=== PATIENT | female | born 1930 | race Caucasian/White ===

== ENCOUNTER 2017-02-16 06:30 | Day surgery (SDC) | payer MEDICARE, OTHER ==
[2017-02-15 16:01] LABS: BASOPHILS 0.1 % (0-2); EOSINOPHILS 1.2 % (0-7); HEMATOCRIT 33.3 % (36.0-48.0); HEMOGLOBIN 10.4 g/dL (12-16); IMMATURE GRANULOCYTES 0.4 % (0-5); LYMPHOCYTES 5.8 % (15-50); MCH 32.9 pg (26.0-34.0); MCHC 31.2 g/dL (31.0-37.0); MCV 105.4 fL (80.0-100.0); MEAN PLATELET VOLUME 10.9 fL (7.4-10.4); MONOCYTES 8.3 % (2-11); NEUTROPHILS 84.2 % (40-80); PLATELET COUNT 144 10x3/uL (130-400); RBC 3.16 10x6/uL (4.00-5.40); RDW 15.3 % (11.5-14.5); WBC 7.5 10x3/uL (4.8-10.8)
[2017-02-15 16:10] LABS: APTT 30.9 SECONDS (22.8-39.4); INR 1.02 (0.85-1.17); PROTIME 13.3 SECONDS (11.6-15.0)
[2017-02-15 16:12] LABS: ANION GAP 12.4 mmol/L (8-16); CALCIUM 9.3 mg/dL (8.5-10.1); CARBON DIOXIDE 29.8 mmol/L (21.0-32.0); CREATININE - SERUM 4.4 mg/dL (0.6-1.3); POTASSIUM - SERUM 4.2 mmol/L (3.5-5.1)
[~2017-02-16 06:30] MED LIST: ACETAMINOPHEN325 MG PO; DOXYCYCLINE HY100 M2 PO; DULCOLAX10 MG/SUPP RC; FOLIC ACID1 MG PO; FUROSEMIDE20 MG; LEVOTHROID125 MCG; LOPRESSOR25 MG PO; NEPHRO-VITE RX1 TAB; NEPHRO-VITE RX1 TAB PO; NORCO 7.5-3251 EACH PO; PEPCID AC20 MG PO; PHOSLO667 MG PO; PLAVIX75 MG PO; PREVACID30 MG PO; RENVELA800 MG PO; SYNTHROID125 MCG PO; SYNTHROID50 MCG PO; SYNTHROID75 MCG PO; TOPROL XL25 MG PO; ULTRAM50 MG PO
[2017-02-16 08:35] VITALS: BMI 19.6
--- NOTE | 2017-02-16 14:49 | NUR ---
DR TIRADO HERE TO VISIT WITH PATIENT AND FAMILY
--- NOTE | 2017-02-16 15:42 | NUR ---
1500 IV DC WITH CATHER TIP INTACT
--- NOTE | 2017-02-27 13:00 | OP ---
PATIENT NAME: CARMINA GREWAL MEDICAL RECORD: [id number] :30 LOCATION:[facility] ADMISSION DATE: SURGEON: MEENA TIRADO MD DATE OF OPERATION: 02/16/2017 Ms. Grewal is an outpatient. Referred by Dr. Sanz of [place] and Dr. Payne of [place]. 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 ADDITIONAL DIAGNOSES: End-stage renal disease, on hemodialysis and dependence on hemodialysis. SURGEON: Meena Tirado MD ANESTHESIA: General with LMA per OFFICE NURSE. PREOPERATIVE NOTE: Ms. Grewal is a delightful 86-year-old white female patient from [place]. She is on chronic hemodialysis there via a left arm HeRO AV graft. She had been noted to have rising venous pressures and has developed an enlarging pseudoaneurysm in the upper portion of her arm, which when I saw her in the office last week appeared inflamed and I was concerned that it was infected. She is brought to the operating room at this time for a fistulogram and possible open revision. On physical examination preop, the inflammatory changes, the heat and redness overlying the pseudoaneurysm have completely resolved since last week and I am less expecting an abscess or infection of the graft at this point. DESCRIPTION OF PROCEDURE: Under general anesthesia, the patient was prepped and draped in a sterile manner. The graft was accessed with micropuncture technique in antegrade direction near the arterial anastomosis. Initially, a 6-Venezuelan introducer was placed and later an 8-Venezuelan introducer. A 0.035 Glidewire was inserted and advanced to the right atrium through the HeRO outflow device. Contrast injection with digital subtraction technique and proximal graft occlusion yielded an excellent retrograde study with filling of the juxta-anastomotic and anastomotic areas and the brachial artery above and below the anastomosis and there was no lesion or stenosis or other abnormality. There was some irregularity of the graft, but nothing significant. Repeated contrast injections followed to the right atrium demonstrated a large pseudoaneurysm at the site already known by physical examination and an area of stenosis or kinking perhaps at the PTFE connector junction. Beyond that there was free flow into the right atrium. I dilated the area of intragraft connector junction stenosis with a 6-mm angioplasty balloon and repeated contrast injections looked much better with essentially complete resolution. I then placed a stent, initially a 4 cm long x 7 mm wide Fluency PTFE covered stent to cover and repair the pseudoaneurysm. Repeated contrast injections revealed persistent filling and I covered the aneurysm a second time with a longer 60 mm x 7 mm diameter Fluency stent and repeated contrast injection revealed no filling of the aneurysm. The stents were fully expanded with an 8-mm angioplasty balloon. I used a 22-gauge needle and 10 cc syringe to aspirate percutaneously fluid from the pseudoaneurysmal cavity. This was normal-appearing red blood without any signs of abscess or infection. I did send this blood for culture and sensitivity to the lab. The hardware was removed. The puncture site closed OPERATIVE REPORT [id number] CARMINA GREWAL with a [id number] 4-0 Prolene sutures and a period of direct pressure. The puncture site and the site of aneurysmal aspiration were both dressed with Avitene Ultrafoam, Tegaderm, and Cavilon skin prep. The patient was then awakened and in stable condition taken to the recovery room. Blood loss during the operation was insignificant and unreplaced, about 5-10 cc. All sponges, instruments, and needles were accounted for. No specimen was sent for histopathology, although a specimen of blood aspirated from the pseudoaneurysm was sent for culture and sensitivity. PLAN: The patient will be allowed to go home today. She can resume dialysis in her usual schedule tomorrow in [place]. She is to continue on all of her same medications and her same diet. At this point, there is no need for her to have a followup visit with me in my office. We are asking that the [facility] dialysis nurses remove the skin sutures from the puncture sites at dialysis tomorrow. I am also asking the dialysis nurses to avoid sticking the upper one half of the AV graft. I believe there is ample length of graft available on the lower half of her arm so that we do not have to stick through the brand new stents for the first 2 weeks. After that, then I think it is fine to do so. I have marked on the patient's skin where the stents are, where to stick and where not to stick. TRANSINT:[id number] Voice Confirmation ID: [id number] DOCUMENT ID: [id number] CC: [facility] dialysis [place], MEENA MERCEDES MD at 1300 CC: WALI PAYNE MD and WALI SANZ MD [id number] DICTATION DATE: 02/16/17 1332 [facility] OFFICER: 02/16/17 1516 [facility] 02/16/17 [facility] [address] [place] [address]
== END 2017-02-16 15:00 | disposition home or self-care (01) ==
LOC: D.OPS 06:30
PROVIDERS: Surgery
DX: T82.590A Other mechanical complication of surgically created arteriovenous fistula, initial encounter (principal); T82.858A Stenosis of other vascular prosthetic devices, implants and grafts, initial encounter; I72.8 Aneurysm of other specified arteries; I13.2 Hypertensive heart and chronic kidney disease with heart failure and with stage 5 chronic kidney disease, or end stage renal disease; N18.6 End stage renal disease; I50.9 Heart failure, unspecified; Z99.2 Dependence on renal dialysis; Z01.812 Encounter for preprocedural laboratory examination

== ENCOUNTER 2017-06-12 15:33 | Day surgery (SDC) | payer MEDICARE, OTHER ==
--- NOTE | ~2017-06-12 | OP ---
PATIENT NAME: CARMINA GREWAL MEDICAL RECORD: [id number] :30 LOCATION:[facility] ADMISSION DATE: SURGEON: MEENA TIRADO MD DATE OF OPERATION: 06/12/2017 REFERRING PHYSICIAN: Dr. Romano in [place]. DIAGNOSIS: Thrombosis of left upper extremity HeRO AV graft. 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 OPERATION PERFORMED: Left upper extremity fistulogram with AngioJet mechanical thrombolysis and balloon angioplasty of mid body of graft 80% stenosis. SURGEON: Meena Tirado MD ANESTHESIA: Local 1% lidocaine without epinephrine plus IV sedation and monitoring per STREET SPRINKL[facility]. PREOPERATIVE NOTE: Ms. Grewal is an 87-year-old white female patient who has been on hemodialysis for a number of years. Due to apparent thrombophilia, she has had numerous dialysis access failures, but for some time now has been dialyzing with a left upper extremity HeRO AV graft, although she has recently had several episodes of graft thrombosis. Just 5 days ago, she was treated by Dr. Santamaria at [facility] with percutaneous fistulogram and mechanical thrombolysis and balloon angioplasty. She has been on Plavix and aspirin most recently. Apparently, that regimen is not working. She was I think transferred up here from the hospital in [place] either yesterday or today and she was transferred with a Trialysis dialysis catheter in the right femoral vein where it remains at this time. She is brought to the operating room to try to salvage her access. Under IV sedation and monitored per [facility]RE[facility]INK[facility], she was placed in supine position. The left arm prepped and draped in sterile manner. Local anesthetic 1% lidocaine was utilized and micropuncture needle was introduced near the arterial anastomosis directed proximally and this led up to placement of a 6-Yakut introducer. Over 0.035 angled Glidewire, I then performed an AngioJet thrombolysis from the right atrium to near the arterial anastomosis. The patient was systemically heparinized with 3000 units of heparin and the graft was then examined with dilute contrast, which revealed some persistent narrowing or thrombus within the body of the graft between the mid body stent and the arterial anastomosis. I dilated this then with an 8 mm x 60 mm angioplasty balloon. This was done with hand insufflation. There was a waste and this about 80% stenosis did resolve. Repeated contrast injection demonstrated free flow of contrast from near the arterial anastomosis all the way to the right atrium. Then using ultrasound guidance, I introduced another micropuncture needle and catheter into the arterial limb of the graft directed towards the arterial anastomosis and from there, I placed another 6-Yakut introducer and I used a 4-Yakut Mimi embolectomy catheter to pull the arterial anastomotic plug. This immediately restored pulsation and Doppler flow to the graft. I performed a retrograde arteriogram by occluding the graft outflow with the Mimi balloon. This demonstrated no residual thrombus in the arterial limb, a wide open arterial anastomosis, and no evidence of stenosis or embolus within the proximal or distal brachial artery. The patient's heparin was not reversed. The hardware was removed and two 4-0 Prolene sutures were utilized at the OPERATIVE REPORT [id number] CARMINA GREWAL puncture sites for hemostasis. These sites were subsequently dressed with Avitene, Ultrafoam, Tegaderm, and Cavilon skin prep. With a suitably functioning HeRO AV graft and the patient still heparinized, she was taken to the recovery room. Blood loss during the operation was less than 5 mL and was unreplaced. All sponges, instruments, and needles were accounted for. No drain was used and no surgical specimen was submitted for histopathology. I believe that Plavix and aspirin has failed and I am going to start Ms. Grewal on Eliquis 2.5 mg b.i.d. She will need to have dialysis here in [place] and that will need to be done either this afternoon or this evening or tomorrow morning. We need to demonstrate that her HeRO graft is patent and hopefully will be remaining patent for at least several days after she is transferred back to [place]. The Trialysis catheter in her right groin needs to be removed or if there is a problem with the access, it should be replaced with a tunneled dialysis catheter before she leaves the hospital. Also, the patient was found on her chest x-ray this morning to have a pulmonary nodule and a worsening pleural effusion and I do not know if this has been evaluated in [place]. I will ask pulmonology to see her and if she has not had a CT of the chest, consider getting a CT of the chest while she is here with us in [place]. Her Eliquis anticoagulation if that is continued will need to be managed and prescribed by Dr. Romano in [place]. She will not have a routine followup visit to see me in my office, but of course I am available if she has any problems whenever. TRANSINT:[id number] Voice Confirmation ID: [id number] DOCUMENT ID: [id number] MEENA TIRADO MD at 1459 CC: WALI PAYNE and JUSTA SANTAMARIA MD [id number] DICTATION DATE: 06/12/17 1503 DIRECTOR STUDENT UNION: 06/12/17 1547 [facility] 06/13/[address] [id number]
[2017-06-12 08:35] LABS: APTT 30.9 SECONDS (22.8-39.4); INR 1.13 (0.85-1.17); PROTIME 14.1 SECONDS (11.6-15.0)
[2017-06-12 08:36] LABS: ANION GAP 16.1 mmol/L (8-16); CALCIUM 8.8 mg/dL (8.5-10.1); CARBON DIOXIDE 24.4 mmol/L (21.0-32.0); CREATININE - SERUM 9.5 mg/dL (0.6-1.3); POTASSIUM - SERUM 4.5 mmol/L (3.5-5.1)
[2017-06-12 08:39] LABS: BASOPHILS 0.2 % (0-2); EOSINOPHILS 1.9 % (0-7); HEMATOCRIT 33.4 % (36.0-48.0); HEMOGLOBIN 10.5 g/dL (12-16); IMMATURE GRANULOCYTES 0.4 % (0-5); LYMPHOCYTES 5.5 % (15-50); MCH 31.8 pg (26.0-34.0); MCHC 31.4 g/dL (31.0-37.0); MCV 101.2 fL (80.0-100.0); MEAN PLATELET VOLUME 10.7 fL (7.4-10.4); MONOCYTES 8.8 % (2-11); NEUTROPHILS 83.2 % (40-80); PLATELET COUNT 132 10x3/uL (130-400); RDW 14.7 % (11.5-14.5); WBC 5.2 10x3/uL (4.8-10.8)
[2017-06-12 10:15] VITALS: BP 119/46; BMI 20.8
[~2017-06-12 15:33] MED LIST changes: +NEPHROCAPS SOFTG1 MG PO; +SYNTHROID100 MCG PO
[2017-06-13] VITALS: BP 125/56
[2017-06-13 02:06] VITALS: BMI 21.0
[2017-06-13 04:00] VITALS: BP 124/50
[2017-06-13 08:05] VITALS: BP 115/53
[2017-06-13 11:21] VITALS: BP 119/51
[2017-06-13] MEDS ORDERED: ELIQUIS2.5 MG PO (13:31)
[2017-06-13 16:02] VITALS: BP 113/46
== END 2017-06-13 17:54 | disposition home or self-care (01) ==
LOC: D.OPS 15:33 → D.M2 18:13 → D.OPS 06-13 17:54
PROVIDERS: Surgery
DX: T82.868A Thrombosis due to vascular prosthetic devices, implants and grafts, initial encounter (principal); N18.6 End stage renal disease; Z99.2 Dependence on renal dialysis; Z01.812 Encounter for preprocedural laboratory examination; I13.2 Hypertensive heart and chronic kidney disease with heart failure and with stage 5 chronic kidney disease, or end stage renal disease

== ENCOUNTER 2017-09-12 13:30 | Inpatient (IN) | payer MEDICARE, OTHER ==
[~2017-09-12] VITALS: Ht 162.6 cm; Wt 56.9 kg
--- NOTE | ~2017-09-12 | OP ---
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 OPERATION PERFORMED: Insertion of a left common femoral tunneled dialysis catheter inserting a 25 cm HemoSplit TDC. ANESTHESIA: MAC per [place] [facility] and local 1% lidocaine. SURGEON: Meena Tirado MD PREOPERATIVE NOTE: Ms. Grewal is a delightful 87-year-old white female patient from [place], her dray driver there is Dr. Sanz and Dr. Romano. She has been dialyzing for some time with a left upper extremity HeRO AV graft. It has thrombosed several times and required multiple interventions. She has been doing better on Eliquis, but did thrombosed her graft again last weekend. I saw her at [facility] on Sunday and was prepared to do a percutaneous thrombolysis procedure to salvage the access; however, there was a prominent erythematous lesion, which I thought represented an infected pseudoaneurysm for which reason she was not operated at [facility], but instead was admitted to the hospital here and taken to the operating room yesterday. At that time, I performed an open revision resecting the pseudoaneurysm and thrombectomy and then replaced the resected PTFE segment with a short length of 6 mm diameter Propaten PTFE . There did not appear that time to actually be an infection present. I also performed a fistulogram then and removed a good deal of organized thrombus from the graft. She was scheduled for dialysis, then today, but we found this morning that her graft had clotted again. She is brought back to the operating room today, Sunday late in the day about 6:30 with plans to just insert a tunneled dialysis catheter, so she can dialyze tonight and probably go home over the weekend to continue dialysis in [place] and then have her return for surgery probably Sunday of next week at which time I will plan to perform another thrombectomy and a much more extensive revisionary operation on her HeRO graft basically replacing the PTFE section. The patient was placed on the operating table and administered TIVA per [place]. I examined her right neck with ultrasound and found the right internal jugular vein to be sclerotic and very difficult to visualize and I elected to go to the groins. She was then prepped and draped in a sterile manner. I selected the left groin. I did note there was an inflamed seborrheic keratosis pedunculated lesion there, which I later excised about 0.5 cm diameter lesion, which was sent for permanent section histology. Adjacent to that using ultrasound guidance, I noted the common femoral vein to be suitable caliber and fully compressible, though it did exhibit some haziness or vagueness consistent with scarring, possibly from prior dialysis access if not from phlebitis. I accessed it under ultrasound guidance with micropuncture technique and this led to passage of guidewires and dilators and eventually insertion of a 25 cm long HemoSplit dialysis catheter. The tips of the catheter reached up into the distal inferior vena cava with the catheter really inserted to its hilt. This was all done under fluoroscopy. I think that the catheter length optimally should be longer, OPERATIVE REPORT [id number] CARMINA GREWAL but this catheter functioned well. I aspirated and blood returned easily from both lumens. The catheter was then flushed with saline and then heparin locked. The catheter was secured to the skin near the entry site with 2-0 Prolene and the groin incision closed with interrupted inverted 3-0 Vicryl and Dermabond glue. I excised the skin lesion and the small skin defect was closed with 2 interrupted simple 4-0 Prolene sutures that incision and the groin was dressed with Maxorb Ag, Tegaderm, and Cavilon skin prep. A standard CVL dressing was applied to the catheter at the exit site including a chlorhexidine Biopatch. The patient was awakened and returned to her room in stable condition. I believe that she can go on to dialysis this evening and quite possibly go home tomorrow with plans to bring her back next week for her next operation. TRANSINT:[id number] Voice Confirmation ID: [id number] DOCUMENT ID: [id number] MEENA TIRADO MD at 1544 CC: [id number] DICTATION DATE: 09/14/172025 DEMAND GENERATION MANAGER: 09/15/17 0904 DIS IN 09/15/17 [place] [id number] [facility] [address]
--- NOTE | ~2017-09-12 | OP ---
PATIENT NAME: CARMINA GREWAL MEDICAL RECORD: [id number] :30 LOCATION:D. D.2135 ADMISSION DATE:09/12/17 SURGEON: MEENA TIRADO MD DATE OF OPERATION: 09/13/2017 REFERRING PHYSICIAN: Dr. Sanz and Rosalina of [place]. PREOPERATIVE DIAGNOSES: End-stage renal disease and dependence on hemodialysis with history of thrombophilia, presently with thrombosed left arm HeRO AV graft with what appears to be an infected pseudoaneurysm. Postop, no evidence of infection was seen. Those specimens were sent for culture. Gram stain was negative for organisms, but showed a few WBCs. OPERATION PERFORMED: Open revision with thrombectomy of left arm AV graft with intraoperative fistulogram. SURGEON: Meena Tirado MD ANESTHESIA: General with LMA per FACSIMILE MACHINE OPERATOR. PREOPERATIVE NOTE: This 87-year-old white female on chronic hemodialysis. Unfortunately, has thrombophilia and has had numerous dialysis access failures. She is presently dialyzing with a left arm HeRO graft, which has thrombosed several times and she has required numerous interventions. The graft is thrombosed again and it appears that she may have an infected pseudoaneurysm. For that reason her procedure was not done as an outpatient at [facility] yesterday, but instead she was admitted to the hospital yesterday and brought to the operating room here today for procedure. DESCRIPTION OF PROCEDURE: Under general anesthesia with an LMA per FACSIMILE MACHINE OPERATOR, with the patient in supine position, the left arm was prepped and draped in a sterile manner. I made an elliptical incision over the mid portion of the body of the PTFE graft in the left arm and exposed the thrombosed graft and pseudoaneurysm. The pseudoaneurysm was very adherent to the overlying skin, but there did not appear to be any gross purulence or infection. There was a little bit of fluid present which was serosanguineous and which I did sample and send for culture. Gram stain of that fluid revealed very few WBCs and no organisms were seen. That mid-section of the graft was more widely exposed and then resected. I performed a thrombectomy with a Mimi embolectomy catheter from the venous outflow and was successful in removing a very organized thrombus. There are 2 overlapping stents in this segment of PTFE, but on the subsequent angiogram there was no residual stenosis in this area or anywhere in the outflow. The patient was systemically heparinized and the arterial limb was then cleared of thrombus with the embolectomy catheter and a contrast injection to perform a retrograde arteriogram revealed no evidence of stenosis within the arterial limb or juxta-anastomotic segment or the arterial anastomosis itself and there were no lesions seen in the proximal or brachial artery distal to the anastomosis. I used a short Propaten PTFE standard wall thickness graft and placed an interposition graft sutured at both ends with running 6-0 Prolene and sealed with BioGlue. When completed and the occluding clamps and loops were released, excellent flow was established in her AV graft and I was pleased at least with that initial result. The wound was irrigated with Ancef and gentamicin solution. The excised segments of graft were also sent for culture and sensitivity. The wound was closed with interrupted inverted 3-0 Vicryl and running intracuticular 4-0 Monocryl and Dermabond glue. It was dressed with OPERATIVE REPORT [id number] GREWAL,CARMINA R Maxorb Ag, Tegaderm, and Cavilon skin prep. At that point, the patient was awakened and taken to the recovery room. Her heparin anticoagulation was not reversed. I did manpreet on her arm the segment of graft, which is not to be cannulated for the next several weeks. Blood loss during the operation was about 50 cc. None was replaced. All sponges, instruments, and needles were accounted for. No drain was used and no surgical specimen was submitted for histopathology, but several specimens were sent for culture. PLAN: The patient should be able to have dialysis this evening or tomorrow, and then very possibly be able to go home tomorrow or the next day. She will need to be back on her Eliquis when she leaves though. TRANSINT:[id number] Voice Confirmation ID: [id number] DOCUMENT ID: [id number] MEENA TIRADO MD at 1544 CC: [id number] DICTATION DATE: 09/14/172036 TRACK SERVICE WORKER: 09/15/17916 DIS IN 09/15/17 [facility] [address] [place] [address]
[~2017-09-12 13:30] MED LIST changes: +ELIQUIS2.5 MG PO
[2017-09-12 16:03] VITALS: BP 138/59; BMI 20.6
[2017-09-12 17:04] LABS: BASOPHILS 0.2 % (0-2); EOSINOPHILS 1.8 % (0-7); HEMATOCRIT 29.5 % (36.0-48.0); HEMOGLOBIN 9.1 g/dL (12-16); IMMATURE GRANULOCYTES 0.3 % (0-5); LYMPHOCYTES 11.4 % (15-50); MCH 29.3 pg (26.0-34.0); MCHC 30.8 g/dL (31.0-37.0); MCV 94.9 fL (80.0-100.0); MEAN PLATELET VOLUME 10.6 fL (7.4-10.4); MONOCYTES 5.3 % (2-11); RBC 3.11 10x6/uL (4.00-5.40); RDW 15.2 % (11.5-14.5); WBC 6.1 10x3/uL (4.8-10.8)
[2017-09-12 17:06] LABS: PLATELET COUNT 189 10x3/uL (130-400)
[2017-09-12 17:27] LABS: ANION GAP 16.7 mmol/L (8-16); BILIRUBIN - TOTAL 0.27 mg/dL (0.2-1.3); CARBON DIOXIDE 26.7 mmol/L (21.0-32.0); CREATININE - SERUM 11.1 mg/dL (0.6-1.3); PHOSPHOROUS 5.1 mg/dL (2.5-4.9); POTASSIUM - SERUM 4.4 mmol/L (3.5-5.1); PROTEIN - SERUM 6.1 g/dL (6.4-8.2)
[2017-09-12 17:31] LABS: APTT 31.8 SECONDS (22.8-39.4); INR 1.11 (0.85-1.17); PROTIME 13.9 SECONDS (11.6-15.0)
[2017-09-13 01:03] VITALS: BP 148/73
[2017-09-13 06:10] LABS: BASOPHILS 0.2 % (0-2); EOSINOPHILS 2.5 % (0-7); HEMATOCRIT 27.5 % (36.0-48.0); HEMOGLOBIN 8.6 g/dL (12-16); IMMATURE GRANULOCYTES 0.2 % (0-5); LYMPHOCYTES 10.9 % (15-50); MCH 29.1 pg (26.0-34.0); MCHC 31.3 g/dL (31.0-37.0); MEAN PLATELET VOLUME 10.5 fL (7.4-10.4); MONOCYTES 9.9 % (2-11); NEUTROPHILS 76.3 % (40-80); PLATELET COUNT 191 10x3/uL (130-400); RBC 2.96 10x6/uL (4.00-5.40); RDW 15.3 % (11.5-14.5); WBC 4.8 10x3/uL (4.8-10.8)
[2017-09-13 06:12] LABS: MCV 92.9 fL (80.0-100.0)
[2017-09-13 06:15] LABS: ANION GAP 22.3 mmol/L (8-16); CALCIUM 7.8 mg/dL (8.5-10.1); CARBON DIOXIDE 20.2 mmol/L (21.0-32.0); CREATININE - SERUM 11.7 mg/dL (0.6-1.3); POTASSIUM - SERUM 4.5 mmol/L (3.5-5.1)
[2017-09-13 07:00] VITALS: BP 146/69
[2017-09-13 12:46] VITALS: BMI 19.1
[2017-09-13 13:03] VITALS: BP 149/63
[2017-09-13 16:25] VITALS: BP 131/56
[2017-09-13 17:16] VITALS: Ht 162.6 cm; Wt 56.9 kg
[2017-09-14] VITALS: BP 106/48
[2017-09-14 04:00] VITALS: BP 107/47
[2017-09-14 09:01] VITALS: BP 110/47
[2017-09-14 11:29] LABS: BASOPHILS 0.2 % (0-2); EOSINOPHILS 0 % (0-7); HEMATOCRIT 26.4 % (36.0-48.0); IMMATURE GRANULOCYTES 0.3 % (0-5); LYMPHOCYTES 7.1 % (15-50); MCH 29.3 pg (26.0-34.0); MCHC 30.3 g/dL (31.0-37.0); MEAN PLATELET VOLUME 10.4 fL (7.4-10.4); MONOCYTES 8.1 % (2-11); NEUTROPHILS 84.3 % (40-80); PLATELET COUNT 159 10x3/uL (130-400); RBC 2.73 10x6/uL (4.00-5.40); RDW 15.6 % (11.5-14.5)
[2017-09-14 11:32] LABS: MCV 96.7 fL (80.0-100.0); WBC 6.3 10x3/uL (4.8-10.8)
[2017-09-14 11:48] LABS: CALCIUM 7.9 mg/dL (8.5-10.1); CARBON DIOXIDE 24.8 mmol/L (21.0-32.0); POTASSIUM - SERUM 4.8 mmol/L (3.5-5.1)
[2017-09-14 11:51] LABS: CREATININE - SERUM 7.9 mg/dL (0.6-1.3)
[2017-09-14 12:17] VITALS: BP 109/47
[2017-09-14 15:17] VITALS: BP 109/52
[2017-09-14 20:00] VITALS: BP 139/87
[2017-09-15 04:00] VITALS: BP 121/53
[2017-09-15 05:25] LABS: BASOPHILS 0.2 % (0-2); EOSINOPHILS 1.6 % (0-7); HEMATOCRIT 24.6 % (36.0-48.0); HEMOGLOBIN 7.6 g/dL (12-16); IMMATURE GRANULOCYTES 0.2 % (0-5); LYMPHOCYTES 8.8 % (15-50); MCH 29.2 pg (26.0-34.0); MCHC 30.9 g/dL (31.0-37.0); MCV 94.6 fL (80.0-100.0); MEAN PLATELET VOLUME 10.2 fL (7.4-10.4); MONOCYTES 8.3 % (2-11); NEUTROPHILS 80.9 % (40-80); PLATELET COUNT 155 10x3/uL (130-400); RDW 15.6 % (11.5-14.5); WBC 4.3 10x3/uL (4.8-10.8)
[2017-09-15 05:50] LABS: ALBUMIN 2.9 g/dL (3.4-5.0); ANION GAP 15.6 mmol/L (8-16); BILIRUBIN - TOTAL 0.3 mg/dL (0.2-1.3); CALCIUM 7.8 mg/dL (8.5-10.1); CARBON DIOXIDE 25.8 mmol/L (21.0-32.0); CREATININE - SERUM 8.5 mg/dL (0.6-1.3); POTASSIUM - SERUM 4.4 mmol/L (3.5-5.1)
[2017-09-15 08:21] VITALS: BP 144/67
== END 2017-09-15 15:01 | disposition home or self-care (01) | DRG 286 ==
LOC: D.ER 13:30 → D.M2 15:33
PROVIDERS: Internal Medicine Nephrology; Surgery
PROC: B2141ZZ Fluoroscopy of Right Heart using Low Osmolar Contrast (ICD-10-PCS; 2017-09-13)
PROC: 5A1D70Z Performance of Urinary Filtration, Intermittent, Less than 6 Hours Per Day (ICD-10-PCS; 2017-09-13)
PROC: 02H633Z Insertion of Infusion Device into Right Atrium, Percutaneous Approach (ICD-10-PCS; principal; 2017-09-13 12:30)
PROC: 06H033Z Insertion of Infusion Device into Inferior Vena Cava, Percutaneous Approach (ICD-10-PCS; 2017-09-14)
PROC: 0HB9XZZ Excision of Perineum Skin, External Approach (ICD-10-PCS; 2017-09-14)
DX: T82.868A Thrombosis due to vascular prosthetic devices, implants and grafts, initial encounter (principal); N18.6 End stage renal disease; I13.2 Hypertensive heart and chronic kidney disease with heart failure and with stage 5 chronic kidney disease, or end stage renal disease; N25.81 Secondary hyperparathyroidism of renal origin; Y83.8 Other surgical procedures as the cause of abnormal reaction of the patient, or of later complication, without mention of misadventure at the time of the procedure; I50.9 Heart failure, unspecified; E03.9 Hypothyroidism, unspecified; D63.1 Anemia in chronic kidney disease; L82.0 Inflamed seborrheic keratosis

== ENCOUNTER 2017-09-21 06:33 | Day surgery (SDC) | payer MEDICARE, OTHER ==
[2017-09-21] VITALS (8 sets, daily range): BP systolic 134–152; BP diastolic 56–76; BMI 20.6
[~2017-09-21] VITALS: Ht 162.6 cm; Wt 55.5 kg
--- NOTE | ~2017-09-21 | OP ---
PATIENT NAME: CARMINA GREWAL MEDICAL RECORD: [id number] :30 LOCATION:[facility] ADMISSION DATE: SURGEON: MEENA TIRADO MD DATE OF OPERATION: 09/21/2017 REFERRING PHYSICIAN: Dr. Sanz and Dr. Romano of [facility]. 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 OPERATION PERFORMED: Revision with thrombectomy and angiogram, left upper extremity AV graft. SURGEON: Meena Tirado MD ANESTHESIA: General endotracheal per SHIRT CLEANER. PREOPERATIVE NOTE: This is an 87-year-old white female patient from [place], [place] who has been on dialysis for about 8 years I believe. For some time now, she has been dialyzing with a left upper extremity HeRO graft, which has of course had problems and she has required multiple interventions, most recently with recurrent thrombosis of her HeRO graft. I inserted a groin HemoSplit and scheduled her to be operated today to do a major replacement. I believe, there are luminal irregularities and defects in the body of her present PTFE graft, which along with her thrombophilia doomed this access to repeated failure. I am going to try to put in a new PTFE segment today. DESCRIPTION OF PROCEDURE: Under general anesthesia in supine position, the patient was prepped and draped in a sterile manner. I reopened the incision in the deltopectoral groove and exposed the HeRO graft PTFE junction. The outflow device was clamped and the junction taken apart. The graft was aspirated and a small amount of thrombus suctioned from that, it was then flushed with heparinized saline and the outflow device again clamped. The old connector and PTFE graft were mobilized as far as I could through that incision without extending it and I was concerned that the graft was not well incorporated or fixed in the tunnel as one might expect, but neither was there any obvious purulence or other signs of infection. This segment of the graft was resected and sent for culture and sensitivity. I chose a new 6 mm diameter Acuseal PTFE graft and using a new HeRO connector, attached it to the end of the outflow device in the deltopectoral groove. The graft and outflow device were then again aspirated and then flushed again with heparinized saline. I then made an incision over the arterial anastomosis and exposed the distal existing PTFE graft and dissected around that circumferentially and then divided the existing PTFE graft and made a tunnel from there, just above the antecubital space back up to the deltopectoral groove through which we pulled the new Acuseal graft. It was again flushed with heparinized saline. The stump of graft on the brachial artery was then cleared of clot with a Mimi embolectomy catheter and then flushed with heparinized saline. I then did an end to end PTFE to Acuseal OPERATIVE REPORT [id number] CARMINA GREWAL R PTFE anastomosis with running 6-0 Prolene and when completed, I treated the suture line with BioGlue and when clamps and loops were released, etc., excellent flow was immediately established within the new AV graft and the suture line was hemostatic. The wounds were irrigated with antibiotic solution and infiltrated with 0.25% Marcaine without epinephrine. I accessed the graft through a new portion of Acuseal PTFE with a micro stick and a 4-Emirati microcatheter, performed an angiogram, which revealed free flow of contrast through the venous outflow device into the right atrium and then another repeated studies and with a clamp occlusion proximal to that mini stick site revealed the body of the graft and the JA and AA to be wide open and there were no lesions seen within the brachial artery above or below the anastomosis, the clamp was released, and the patient's ooze of coagulopathy was treated with a single unit transfusion of probably fresh frozen plasma. The wounds were closed with interrupted inverted 3-0 Vicryl and running intracuticular 4-0 Monocryl and Dermabond glue. They were dressed with Maxorb Ag, Tegaderm, and Cavilon skin prep. Additionally, a light pressure dressing with Kerlix and Coban was applied to the arm. I have ordered the patient to be capped in a head up position with her left arm elevated on a couple of pillows and if there is any sign of bleeding, sandbags to be used on the shoulder area. Note, her last dose of Eliquis was 24 hours preop. Her prothrombin time this morning was approximately 15 seconds. Blood loss during the operation about 100 cc, was unreplaced. All sponges, instruments, and needles were accounted for. No drain was used and no surgical specimen was submitted for histopathology, but a specimen of old PTFE graft was sent to the lab for culture for aerobic and anaerobic organisms. PLAN: I think the patient will need to be kept in observation this afternoon and this evening, primarily because of my concern over her risk for bleeding. Hopefully, tomorrow she will be able to be discharged to home. Logistics of her dialysis may be complicated. Tomorrow, she may need to dialyze here in the hospital or perhaps she could dialyze as an outpatient on her way home or after she gets back home to [place]. For now, she is to continue all of her same medications with the exception of her anticoagulant, which we can probably resume in about 2 days. She will continue her same diet, medications, activities, and when possible dialysis schedule. I think she should be continued to be dialyzed with her catheter for about 2 more weeks if it last that long and then begin accessing her AV graft using Acuseal technique. Soon thereafter, assuming the new graft remains patent, the thigh HemoSplit should be removed. TRANSINT:[id number] Voice Confirmation ID: [id number] DOCUMENT ID: [id number] MEENA TIRADO MD at 0847 CC: [id number] DICTATION DATE: 09/21/17 1322 BOTTLE HOUSE QUALITY CONTROL TECHNICIAN: 09/21/17 1421 [facility] 09/22/17 [facility] [address] [id number]
[2017-09-21 07:13] LABS: ANION GAP 14.1 mmol/L (8-16); CALCIUM 8.5 mg/dL (8.5-10.1); CARBON DIOXIDE 26.3 mmol/L (21.0-32.0); CREATININE - SERUM 5.7 mg/dL (0.6-1.3); POTASSIUM - SERUM 3.4 mmol/L (3.5-5.1)
[2017-09-21 07:19] LABS: INR 1.26 (0.85-1.17); PROTIME 15.3 SECONDS (11.6-15.0)
[2017-09-21 07:20] LABS: APTT 32.7 SECONDS (22.8-39.4)
[2017-09-21 07:30] LABS: BASOPHILS 0.2 % (0-2); HEMATOCRIT 26.4 % (36.0-48.0); HEMOGLOBIN 8.2 g/dL (12-16); IMMATURE GRANULOCYTES 0.3 % (0-5); LYMPHOCYTES 4.8 % (15-50); MCH 29.3 pg (26.0-34.0); MCHC 31.1 g/dL (31.0-37.0); MCV 94.3 fL (80.0-100.0); MEAN PLATELET VOLUME 11.3 fL (7.4-10.4); MONOCYTES 7.9 % (2-11); NEUTROPHILS 85.8 % (40-80); PLATELET COUNT 135 10x3/uL (130-400); RDW 15.5 % (11.5-14.5); WBC 5.8 10x3/uL (4.8-10.8)
[2017-09-22] VITALS: BP 131/59
[2017-09-22 02:26] VITALS: Ht 162.6 cm; Wt 55.5 kg
[2017-09-22 04:00] VITALS: BP 125/51
[2017-09-22 08:04] VITALS: BP 129/48
== END 2017-09-22 13:10 | disposition home or self-care (01) ==
LOC: D.OPS 06:33 → D.M2 13:35 → D.OPS 09-22 13:10
PROVIDERS: Surgery
DX: T82.868A Thrombosis due to vascular prosthetic devices, implants and grafts, initial encounter (principal); N18.6 End stage renal disease; Z99.2 Dependence on renal dialysis; D68.59 Other primary thrombophilia; Z79.02 Long term (current) use of antithrombotics/antiplatelets; Z79.01 Long term (current) use of anticoagulants; Z01.812 Encounter for preprocedural laboratory examination

== ENCOUNTER 2017-11-16 07:05 | Inpatient (IN) | payer MEDICARE, OTHER ==
[~2017-11-16] VITALS: Ht 162.6 cm; Wt 54.5 kg
--- NOTE | ~2017-11-16 | OP ---
PATIENT NAME: CARMINA GREWAL MEDICAL RECORD: [id number] :30 LOCATION:D. D.2138 ADMISSION DATE:11/16/17 SURGEON: MEENA TIRADO MD DATE OF OPERATION: 11/22/2017 PREOPERATIVE DIAGNOSIS: Recurrent thrombosis of left upper extremity HeRO AV graft. POSTOPERATIVE DIAGNOSES: Recurrent thrombosis of left upper extremity HeRO AV graft. OPERATION PERFORMED: Percutaneous access times 2 with ultrasound guidance and AngioJet mechanical thrombolysis of thrombus in HeRO graft from right atrium to arterial anastomosis to the brachial artery. Balloon angioplasty of JA segment of the AV graft and stenting with a 7-mm diameter x 5-cm Viabahn PTFE covered stent graft in the JA segment. Also selective left brachial artery arteriogram. ANESTHESIA: General with LMA per PROMOTIONAL REPRESENTATIVE. REFERRING PHYSICIAN: Guillermo Sanz MD, in [place] ATTENDING PHYSICIAN: Jesika Ball MD SURGEON: Meena Tirado MD PREOPERATIVE NOTE: This is an 87-year-old white female from [place], who has been on hemodialysis for long time and she has had multiple dialysis access failures due to thrombophilia in large part. She has been dialyzing now for some time with a left upper extremity HeRO graft, which had recently thrombosed despite her being on Plavix and Eliquis. She was hospitalized and taken to the operating room earlier this week and had an endovascular thrombolysis and angioplasty procedure with initial alevism of flow; however, this failed and she has had to have dialysis with a femoral temporary Trialysis catheter. She is returned to the operating room now to try again to salvage her graft. Under general anesthesia with an LMA per PROMOTIONAL REPRESENTATIVE, in supine position, the patient was prepped and draped in sterile manner The HeRO PTFE graft in the left upper extremity was accessed times 2 with micropuncture technique and two opposing 6-Montenegrin introducers were placed. The proximal introducer was replaced later in the case with an 8-Montenegrin introducer. Over a 0.035 Glidewire, the 90-cm long AngioJet was used and lysed thrombus within the venous outflow device of the HeRO and proximal PTFE segment. Contrast injection demonstrated some residual thrombus in the PHLEBOTOMIST SUPERVISOR/INSTRUCTOR segment, which was cleared with a Mimi balloon catheter. The proximal port was then accessed and a 0.035 Glidewire passed distally. This was passed through the arterial anastomosis and up the brachial artery. A Glidewire was inserted and a selective brachial artery arteriogram was obtained, which revealed good flow in the brachial artery above and below the arterial anastomosis and good flow without evidence of emboli or other stenoses in radial and ulnar arteries in the forearm. I used the AngioJet device over the guidewire to lyse thrombus in the arterial anastomosis, JA segment, and body of the graft. Repeat contrast injection then demonstrated persistent luminal irregularity and narrowing in the JA segment. This was treated with angioplasty with an 8-mm diameter Conquest high-pressure angioplasty balloon, 80 mm in length. Repeated contrast injection revealed persistent abnormalities. Passage of a Mimi embolectomy catheter was done and this did not change the picture. OPERATIVE REPORT [id number] CARMINA GREWAL I used then a 5-Montenegrin TrerotMyNewPlace egg-beater device to try to scrape the fried of the graft and the JA segment. Repeat contrast injection revealed still the same area of abnormality. I do not know if this represents a dissection of the intimal or pseudointimal lining or persistent tenacious thrombus. At any rate, I think that this was the lesion which I held to be responsible for early failure after her last thrombectomy. I covered that area from near the arterial anastomotic orifice with a 5-cm long x 7-mm diameter Viabahn PTFE covered stent and this was balloon dilated with the 8-mm angioplasty balloon. After this, contrast injection was performed again with the [place] catheter placed in the proximal brachial artery. This revealed good filling and flow in the graft and satisfactory result with the stent. The patient had been given 3000 units of heparin directly into the shunt during the procedure. No other anticoagulation was utilized. The patient had not been discontinued on her Eliquis and Plavix preop however. The 8-Montenegrin port and the 6-Montenegrin port were removed and hemostasis was obtained with [id number]-qc-[id number] 4-0 Prolene sutures and direct pressure. These sites were dressed with Ultrafoam, Tegaderm, and Cavilon skin prep. With the patient in stable condition and not bleeding from her puncture sites, she was awakened and taken to the recovery room. Blood loss during the procedure was about 50 cc, none was replaced intraoperatively. All sponges, instruments, and needles were accounted for. No drain was used and no surgical specimen was submitted for histopathology. PLAN: The patient will need to remain in the hospital and have dialysis via her temporary catheter until she is no longer bleeding and the left upper extremity AV graft can be successfully accessed with 17-gauge needles and dialysis performed by that route then, which maybe 2-3 days from now. She may be able to be discharged from the hospital and have the Trialysis catheter removed before leaving. TRANSINT:[id number] Voice Confirmation ID: [id number] DOCUMENT ID: [id number] MEENA TIRADO MD at 1054 CC: JESIKA BALL MD [id number] DICTATION DATE: 11/22/17 1200 BUTTON SEWER: 11/22/17 1600 [facility] 11/24/17 [facility] [address] [place] [address]
--- NOTE | ~2017-11-16 | OP ---
PATIENT NAME: CARMINA GREWAL MEDICAL RECORD: [id number] :30 LOCATION:D. D.2138 ADMISSION DATE:11/16/17 SURGEON: MEENA TIRADO MD DATE OF OPERATION: 11/16/2017 PREOPERATIVE DIAGNOSES: End-stage renal disease and dependence on hemodialysis with recurrent thrombosis of left arm HeRO AV graft, thrombophilia and hyperkalemia. POSTOPERATIVE DIAGNOSES: End-stage renal disease and dependence on hemodialysis with recurrent thrombosis of left arm HeRO AV graft, thrombophilia and hyperkalemia. OPERATION PERFORMED: Ultrasound-guided access of the right common femoral vein and performance of a vena cavogram followed by insertion of a 24 cm Trialysis acute dialysis catheter. SURGEON: Meena Tirado MD ANESTHESIA: Local 1% lidocaine without epinephrine and MAC per CYTOGENETIC TECHNICIAN. PREOPERATIVE NOTE: This 87-year-old white female patient with end-stage renal disease has been on chronic hemodialysis for a number of years. She has been dialyzing successfully though with numerous interventions required with a left arm HeRO graft. She has been on Eliquis in the past. I believe she has been on other anticoagulants. Her HeRO graft has thrombosed. Her last dialysis was Sunday of this week, and this morning she presented to the hospital as scheduled and found to have a potassium of 6.5. After medical treatment, the potassium level remained at 6.5. Originally scheduled for fistulogram with AngioJet thrombolysis and indicated procedures to reopen her HeRO graft that has been canceled or postponed until Sunday of next week and today she is to have just an acute dialysis catheter placed. DESCRIPTION OF PROCEDURE: Under MAC, the right neck was examined with ultrasound. The right internal jugular vein appeared to be patent, though small and sclerotic at the level of the clavicle. I accessed it with a micropuncture needle and the wire would not advance, and I stopped trying to access via that site after a few more minutes of various manipulations. I did not perform a contrast study from that right neck. We proceeded down to the right groin, which had been prepped and draped as well. With ultrasound, I was able to image the right femoral vein, though it was fuzzy. Under local, I made an incision in the skin and the upper thigh and then inserted a micropuncture needle successfully into the right common femoral vein and then a guidewire and then microcatheter. A larger catheter was advanced under fluoroscopy and it appeared to advance into the inferior vena cava. Two dilators were passed and lastly a 24 cm long Trialysis dialysis catheter with straight extensions was inserted. Though, before that I did inject contrast from the femoral catheter and performed inferior venacavogram, which demonstrated small vessels, but no occlusions or true stenoses. After the Trialysis catheter was placed, I injected contrast again and found on this study no abnormality of the upper IVC. The catheter was accessed and aspirated, free return of blood confirmed. It was then flushed with saline and heparin lock solution. The lines were clamped and capped, p.r.n. adapter was placed on the central line. The catheter was sutured in place with a 2-0 Prolene and the standard central venous line dressing was applied. OPERATIVE REPORT [id number] CARMINA GREWAL There was no blood loss during the procedure. All sponges, instruments and needles were accounted for. No drain was used. I plan to take Ms. Grewal to the operating room, hopefully Sunday morning, and at that time I hope to be able to do a percutaneous fistulogram, AngioJet, thrombectomy and indicated procedures and successfully restore patency again in her HeRO. We have not discontinued her Eliquis for that reason. TRANSINT:[id number] Voice Confirmation ID: [id number] DOCUMENT ID: [id number] MEENA TIRADO MD at 1451 CC: [id number] DICTATION DATE: 11/16/17 1431 PANEL RAISER OPERATOR: 11/16/17 1454 [facility] [address] [id number]
--- NOTE | ~2017-11-16 | OP ---
PATIENT NAME: CARMINA GREWAL MEDICAL RECORD: [id number] :30 LOCATION:D. D.2138 ADMISSION DATE:11/16/17 SURGEON: MEENA TIRADO MD DATE OF OPERATION: 11/19/2017 REFERRING PHYSICIAN: Dr. Umu Manjarrez ATTENDING HAND RIGGER: This week is Dr. Payne. SURGEON: Meena Tirado MD ANESTHESIA: General per LMA by MANAGER WATER. 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 OPERATION PERFORMED: Ultrasound-guided access times 2 and AngioJet mechanical thrombolysis and balloon angioplasty of mild stenosis of the body of the graft and balloon angioplasty of a titer approximately 80% juxta arterial anastomotic stenosis and selective brachial arteriogram. PREOPERATIVE NOTE: Ms. Grewal is a delightful 87-year-old white female patient who has been on dialysis for years. She has thrombosed many dialysis accesses and is dialyzing now with a left upper extremity HeRO, which she has thrombosed several times, but we have been able to salvage it several times. She is on chronic Eliquis and Plavix now because of her thrombophilia. Nevertheless, she had a thrombosis of her graft and was brought up here to the hospital for thrombectomy on Sunday of last week, but was found to have a critical hyperkalemia and instead I placed a dialysis catheter in her groin and then she has had dialysis and now with a normal potassium is brought back to the operating room to try to once again reopen her HeRO graft. Under general anesthesia administered by MANAGER WATER with LMA in supine position, the patient's left arm was prepped and draped in a sterile manner. I accessed the AV graft with 2 micropunctures with ultrasound guidance and I placed two 6-Italian introducers. Over a 0.035 angled Glidewire, I used an AngioJet device to lyse and remove thrombus from the intrathoracic outflow stent portion of the HeRO and from the body of the graft. The patient was given 3000 units of heparin systemically. I then used an 8 mm x 4 cm angioplasty balloon to help macerate residual thrombus and identified a mild stricture of the body of the graft, which was less than 60% diameter reducing, but which yielded nicely to the angioplasty. The graft was then flushed with saline and heparin solution and then a DSA contrast study was performed, which revealed wide open graft without congregation of arterial inflow. Through the more proximal port, which was directed distally, I again inserted the 0.035 Glidewire and over that the AngioJet catheter and I lysed thrombus within the JA and also within the body of the graft. I then used a Mimi embolectomy catheter to help pull the thrombus from the arterial anastomosis and I noted that there was stenosis of the JA segment. I used the angioplasty balloon then to dilate the JA segment and there was I would say approximately a 75% to 80% diameter reducing stenosis and I OPERATIVE REPORT [id number] CARMINA GREWAL achieved full effacement of the angioplasty balloon and there was a 5% to 10% residual stenosis on completion angiography. I did pass a Glidewire and glide catheter through the body of the graft on the JA and AA into the brachial artery and performed a selective brachial artery arteriogram. This was to identify any areas of stenosis within the proximal artery, which might be causing reduced arterial inflow and also to assure that there were no emboli. There were no emboli and the arteriogram was normal. Good flow was restored within the graft. The procedure was completed. The hardware was removed and pzhgda-[id number]-[id number] 4-0 Prolene sutures placed in the skin at the sites of the 6-Italian introducers. Sterile dressings were applied and the patient then was awakened and in stable condition, with a good pulse and thrill palpable over her graft, was taken to the recovery room. Blood loss was about 10 cc and was unreplaced of course. All sponges, instruments and needles were accounted for. Of course, no drain was used and blood loss about 10 cc was unreplaced. PLAN: The patient will have dialysis here tomorrow and if her dialysis access functions well, her dialysis catheter can be removed and she can be discharged to return home. She will, for now, continue on Eliquis and Plavix, but she may need to be changed to different medications. In case the Plavix in her case is not effective, I think it would be good to give her a trial on Brilinta. Also, she might be changed from Eliquis to Xarelto just because there is now available antidote for that medication, which might be needed in case of bleeding complications. TRANSINT:[id number] Voice Confirmation ID: [id number] DOCUMENT ID: [id number] MEENA TIRADO MD at 2205 CC: WALI PAYNE [id number] DICTATION DATE: 11/19/172135 WIND TUNNEL ENGINEER: 11/20/[address] [facility] [place] [id number] [place] [id number]
[2017-11-16 07:27] LABS: BASOPHILS 0.1 % (0-2); EOSINOPHILS 1.3 % (0-7); HEMATOCRIT 30.9 % (36.0-48.0); HEMOGLOBIN 9.6 g/dL (12-16); IMMATURE GRANULOCYTES 0.8 % (0-5); MCH 29.6 pg (26.0-34.0); MCHC 31.1 g/dL (31.0-37.0); MCV 95.4 fL (80.0-100.0); MEAN PLATELET VOLUME 9.9 fL (7.4-10.4); NEUTROPHILS 86.8 % (40-80); PLATELET COUNT 125 10x3/uL (130-400); RBC 3.24 10x6/uL (4.00-5.40); RDW 17.4 % (11.5-14.5); WBC 8.7 10x3/uL (4.8-10.8)
[2017-11-16 07:40] LABS: ANION GAP 16.4 mmol/L (8-16); CALCIUM 8.3 mg/dL (8.5-10.1); CARBON DIOXIDE 27.1 mmol/L (21.0-32.0); CREATININE - SERUM 7.6 mg/dL (0.6-1.3)
[2017-11-16 07:42] LABS: POTASSIUM - SERUM 6.5 mmol/L (3.5-5.1)
[2017-11-16 07:43] LABS: INR 1.2 (0.85-1.17); PROTIME 14.8 SECONDS (11.6-15.0)
[2017-11-16 09:41] VITALS: BP 145/69; BMI 20.6
[2017-11-16 11:07] LABS: ANION GAP 13.1 mmol/L (8-16); CALCIUM 8.4 mg/dL (8.5-10.1); CARBON DIOXIDE 28.4 mmol/L (21.0-32.0); CREATININE - SERUM 7.6 mg/dL (0.6-1.3)
[2017-11-16 11:12] LABS: POTASSIUM - SERUM 6.5 mmol/L (3.5-5.1)
[2017-11-16 15:04] VITALS: BP 141/63
[2017-11-16 15:13] VITALS: BP 141/63; BMI 20.6
[2017-11-16 20:02] VITALS: BP 115/52
[2017-11-17 00:24] VITALS: BP 130/50
[2017-11-17 06:13] VITALS: BP 143/69
[2017-11-17 08:09] VITALS: BP 128/64
[2017-11-17 08:38] VITALS: Ht 162.6 cm; Wt 54.5 kg
[2017-11-17 09:43] LABS: BASOPHILS 0.2 % (0-2); EOSINOPHILS 1.1 % (0-7); HEMATOCRIT 29.9 % (36.0-48.0); HEMOGLOBIN 9.3 g/dL (12-16); IMMATURE GRANULOCYTES 0.5 % (0-5); LYMPHOCYTES 7.8 % (15-50); MCH 29.5 pg (26.0-34.0); MCHC 31.1 g/dL (31.0-37.0); MCV 94.9 fL (80.0-100.0); MEAN PLATELET VOLUME 11.1 fL (7.4-10.4); MONOCYTES 3.7 % (2-11); NEUTROPHILS 86.7 % (40-80); PLATELET COUNT 127 10x3/uL (130-400); RBC 3.15 10x6/uL (4.00-5.40); RDW 17.6 % (11.5-14.5); WBC 6.3 10x3/uL (4.8-10.8)
[2017-11-17 09:57] LABS: ANION GAP 13.9 mmol/L (8-16); CALCIUM 8.2 mg/dL (8.5-10.1); CARBON DIOXIDE 29.3 mmol/L (21.0-32.0)
[2017-11-17 10:00] LABS: POTASSIUM - SERUM 5.2 mmol/L (3.5-5.1)
[2017-11-17 12:05] VITALS: BP 132/61
[2017-11-17 15:01] VITALS: BP 116/58
[2017-11-17 20:30] VITALS: BP 120/50
[2017-11-18 04:30] VITALS: BP 124/58
[2017-11-18 08:47] LABS: ANION GAP 14.4 mmol/L (8-16); CALCIUM 8.1 mg/dL (8.5-10.1); CARBON DIOXIDE 28.5 mmol/L (21.0-32.0); POTASSIUM - SERUM 4.9 mmol/L (3.5-5.1)
[2017-11-18 08:49] LABS: CREATININE - SERUM 6.7 mg/dL (0.6-1.3)
[2017-11-18 13:25] VITALS: BP 126/54
[2017-11-18 16:11] VITALS: BP 129/55
[2017-11-18 21:54] VITALS: BP 140/58
[2017-11-19 02:13] VITALS: BP 148/66
[2017-11-19 05:26] VITALS: BP 136/60
[2017-11-19 06:23] LABS: BASOPHILS 0.2 % (0-2); EOSINOPHILS 2.8 % (0-7); HEMATOCRIT 26.4 % (36.0-48.0); HEMOGLOBIN 8.4 g/dL (12-16); IMMATURE GRANULOCYTES 0.5 % (0-5); LYMPHOCYTES 7.7 % (15-50); MCH 29.6 pg (26.0-34.0); MCHC 31.8 g/dL (31.0-37.0); MEAN PLATELET VOLUME 11.9 fL (7.4-10.4); MONOCYTES 12.6 % (2-11); NEUTROPHILS 76.2 % (40-80); PLATELET COUNT 128 10x3/uL (130-400); RBC 2.84 10x6/uL (4.00-5.40)
[2017-11-19 06:32] LABS: ANION GAP 15.2 mmol/L (8-16); CALCIUM 7.9 mg/dL (8.5-10.1); CARBON DIOXIDE 25.8 mmol/L (21.0-32.0); CREATININE - SERUM 7.9 mg/dL (0.6-1.3); WBC 4.3 10x3/uL (4.8-10.8)
[2017-11-19 10:10] VITALS: BP 123/59
[2017-11-20 05:17] VITALS: BP 141/59
[2017-11-20 06:07] LABS: BASOPHILS 0.2 % (0-2); EOSINOPHILS 2.5 % (0-7); HEMATOCRIT 27.1 % (36.0-48.0); HEMOGLOBIN 8.6 g/dL (12-16); IMMATURE GRANULOCYTES 0.7 % (0-5); LYMPHOCYTES 7.1 % (15-50); MCH 29.6 pg (26.0-34.0); MCHC 31.7 g/dL (31.0-37.0); MCV 93.1 fL (80.0-100.0); MEAN PLATELET VOLUME 10.5 fL (7.4-10.4); MONOCYTES 11.1 % (2-11); NEUTROPHILS 78.4 % (40-80); PLATELET COUNT 119 10x3/uL (130-400); RBC 2.91 10x6/uL (4.00-5.40); RDW 16.9 % (11.5-14.5); WBC 4.1 10x3/uL (4.8-10.8)
[2017-11-20 06:10] LABS: ANION GAP 16.7 mmol/L (8-16); CALCIUM 7.9 mg/dL (8.5-10.1); CARBON DIOXIDE 23.9 mmol/L (21.0-32.0); POTASSIUM - SERUM 5.6 mmol/L (3.5-5.1)
[2017-11-20 08:17] VITALS: BP 146/63
[2017-11-20 16:45] VITALS: BP 118/58
[2017-11-20 20:00] VITALS: BP 122/49
[2017-11-21] VITALS: BP 138/70
[2017-11-21 04:00] VITALS: BP 126/56
[2017-11-21 05:52] LABS: BASOPHILS 0 % (0-2); HEMATOCRIT 24.5 % (36.0-48.0); HEMOGLOBIN 7.8 g/dL (12-16); IMMATURE GRANULOCYTES 0.5 % (0-5); MCH 29.4 pg (26.0-34.0); MCHC 31.8 g/dL (31.0-37.0); MCV 92.5 fL (80.0-100.0); MEAN PLATELET VOLUME 10.3 fL (7.4-10.4); NEUTROPHILS 77.5 % (40-80); PLATELET COUNT 117 10x3/uL (130-400); RBC 2.65 10x6/uL (4.00-5.40); RDW 16.7 % (11.5-14.5); WBC 4.1 10x3/uL (4.8-10.8)
[2017-11-21 06:34] LABS: ANION GAP 16.4 mmol/L (8-16); CALCIUM 7.8 mg/dL (8.5-10.1); CARBON DIOXIDE 24.4 mmol/L (21.0-32.0); POTASSIUM - SERUM 4.8 mmol/L (3.5-5.1)
[2017-11-21 09:16] VITALS: BP 127/63
[2017-11-21 12:22] VITALS: BP 108/80
[2017-11-21 16:30] VITALS: BP 117/53
[2017-11-21 20:00] VITALS: BP 125/65
[2017-11-22 06:11] VITALS: BP 127/55
[2017-11-22 06:31] LABS: BASOPHILS 0.3 % (0-2); EOSINOPHILS 2.8 % (0-7); HEMATOCRIT 25.2 % (36.0-48.0); HEMOGLOBIN 7.8 g/dL (12-16); IMMATURE GRANULOCYTES 0.5 % (0-5); LYMPHOCYTES 16.1 % (15-50); MCH 29.4 pg (26.0-34.0); MEAN PLATELET VOLUME 11.3 fL (7.4-10.4); MONOCYTES 7.5 % (2-11); NEUTROPHILS 72.8 % (40-80); PLATELET COUNT 117 10x3/uL (130-400); RBC 2.65 10x6/uL (4.00-5.40); RDW 16.9 % (11.5-14.5); WBC 3.9 10x3/uL (4.8-10.8)
[2017-11-22 06:40] LABS: ANION GAP 17.6 mmol/L (8-16); CARBON DIOXIDE 22.2 mmol/L (21.0-32.0); CREATININE - SERUM 8.2 mg/dL (0.6-1.3); POTASSIUM - SERUM 4.8 mmol/L (3.5-5.1)
[2017-11-22 06:43] LABS: MCV 95.1 fL (80.0-100.0)
[2017-11-22 08:52] VITALS: BP 131/59
[2017-11-22 12:53] VITALS: BP 151/67
[2017-11-22 21:27] VITALS: BP 115/44
[2017-11-23 02:11] VITALS: BP 114/46
[2017-11-23 04:00] VITALS: BP 108/52
[2017-11-23 06:20] LABS: CALCIUM 8.1 mg/dL (8.5-10.1); POTASSIUM - SERUM 4.6 mmol/L (3.5-5.1)
[2017-11-23 06:24] LABS: CARBON DIOXIDE 30.6 mmol/L (21.0-32.0); CREATININE - SERUM 5.9 mg/dL (0.6-1.3)
[2017-11-23 06:49] LABS: BASOPHILS 0.1 % (0-2); EOSINOPHILS 0.1 % (0-7); HEMATOCRIT 20.8 % (36.0-48.0); IMMATURE GRANULOCYTES 0.6 % (0-5); LYMPHOCYTES 2.9 % (15-50); MCH 29.6 pg (26.0-34.0); MCHC 31.7 g/dL (31.0-37.0); MCV 93.3 fL (80.0-100.0); MEAN PLATELET VOLUME 11.6 fL (7.4-10.4); NEUTROPHILS 89.3 % (40-80); RBC 2.23 10x6/uL (4.00-5.40); RDW 16.7 % (11.5-14.5)
[2017-11-23 06:53] LABS: PLATELET COUNT 146 10x3/uL (130-400); WBC 7.2 10x3/uL (4.8-10.8)
[2017-11-23 06:54] LABS: HEMOGLOBIN 6.6 g/dL (12-16)
[2017-11-23 08:39] VITALS: BP 126/87
[2017-11-23 11:45] VITALS: BP 145/79
[2017-11-23 15:55] VITALS: BP 111/45
[2017-11-23 21:20] VITALS: BP 115/57
[2017-11-24 02:35] VITALS: BP 109/45
[2017-11-24 06:37] VITALS: BP 117/52
[2017-11-24 06:56] LABS: BASOPHILS 0.2 % (0-2); EOSINOPHILS 0.3 % (0-7); HEMATOCRIT 20.3 % (36.0-48.0); IMMATURE GRANULOCYTES 0.6 % (0-5); LYMPHOCYTES 3.2 % (15-50); MCH 30.4 pg (26.0-34.0); MCHC 32.5 g/dL (31.0-37.0); MCV 93.5 fL (80.0-100.0); MEAN PLATELET VOLUME 10.6 fL (7.4-10.4); NEUTROPHILS 87.7 % (40-80); PLATELET COUNT 174 10x3/uL (130-400); RBC 2.17 10x6/uL (4.00-5.40); RDW 16.7 % (11.5-14.5)
[2017-11-24 07:12] LABS: ANION GAP 16.5 mmol/L (8-16); CALCIUM 8.2 mg/dL (8.5-10.1); CARBON DIOXIDE 25.8 mmol/L (21.0-32.0)
[2017-11-24 07:19] LABS: CREATININE - SERUM 7.8 mg/dL (0.6-1.3); POTASSIUM - SERUM 5.3 mmol/L (3.5-5.1)
[2017-11-24 07:22] LABS: WBC 11.7 10x3/uL (4.8-10.8)
[2017-11-24 07:29] LABS: HEMOGLOBIN 6.6 g/dL (12-16)
[2017-11-24 08:14] VITALS: BP 118/53
[2017-11-24 16:04] VITALS: BP 110/53
== END 2017-11-24 16:51 | disposition home or self-care (01) | DRG 252 ==
LOC: D.OPS 07:05 → D.M2 14:46 → D.OPS 14:47 → D.M2 11-24 16:51
PROVIDERS: Internal Medicine Nephrology; Surgery
PROC: B549ZZA Ultrasonography of Inferior Vena Cava, Guidance (ICD-10-PCS; 2017-11-16)
PROC: 06H033Z Insertion of Infusion Device into Inferior Vena Cava, Percutaneous Approach (ICD-10-PCS; principal; 2017-11-16 12:00)
PROC: B31N1ZZ Fluoroscopy of Other Upper Arteries using Low Osmolar Contrast (ICD-10-PCS; 2017-11-19)
PROC: 03C83ZZ Extirpation of Matter from Left Brachial Artery, Percutaneous Approach (ICD-10-PCS; 2017-11-19 14:30)
PROC: 03783ZZ Dilation of Left Brachial Artery, Percutaneous Approach (ICD-10-PCS; 2017-11-19 14:30)
PROC: 03763DZ Dilation of Left Axillary Artery with Intraluminal Device, Percutaneous Approach (ICD-10-PCS; 2017-11-22)
PROC: 03C63ZZ Extirpation of Matter from Left Axillary Artery, Percutaneous Approach (ICD-10-PCS; 2017-11-22)
PROC: B31J1ZZ Fluoroscopy of Left Upper Extremity Arteries using Low Osmolar Contrast (ICD-10-PCS; 2017-11-22)
DX: T82.868A Thrombosis due to vascular prosthetic devices, implants and grafts, initial encounter (principal); N18.6 End stage renal disease; I12.0 Hypertensive chronic kidney disease with stage 5 chronic kidney disease or end stage renal disease; D68.59 Other primary thrombophilia; Y83.8 Other surgical procedures as the cause of abnormal reaction of the patient, or of later complication, without mention of misadventure at the time of the procedure; Z99.2 Dependence on renal dialysis; E87.5 Hyperkalemia

== ENCOUNTER 2017-12-17 11:29 | Inpatient (IN) | payer MEDICARE, OTHER ==
[~2017-12-17] VITALS: Ht 162.6 cm; Wt 55.6 kg
--- NOTE | ~2017-12-17 | OP ---
PATIENT NAME: CARMINA GREWAL MEDICAL RECORD: [id number] :30 LOCATION:D. 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 OPERATION PERFORMED: Percutaneous mechanical thrombolysis with AngioJet and balloon angioplasty of arterial anastomotic stenosis due to thrombus and selective left brachial artery arteriogram. SURGEON: Meena Tirado MD ANESTHESIA: General with LMA per ROD MILL TENDER. PREOPERATIVE NOTE: Ms. Grewal is an 87-year-old white female patient with end-stage renal disease, who has been on dialysis for years now. She has been on dialysis for sometime with a left upper extremity HeRO AV graft which, despite aggressive anticoagulation treatment, continues to thrombose at fairly close intervals. She has thrombosed again, was admitted to the hospital over this past weekend; and now, Sunday, she is brought to the operating room for declot procedure. Under anesthesia, in supine position, the patient's left arm was prepped and draped in sterile manner. I accessed it with micropuncture technique and placed 6-Frisian introducers, one directed antegrade and the other retro. Over a Glidewire, I used an AngioJet to lyse thrombus within the body of the graft and through the outflow device to the right atrium. The lumen was then aspirated and 20 cc of blood withdrew, was discarded; after which, the HeRO was flushed with heparinized saline and then contrast injection demonstrated no irregularities or residual apparent thrombus within the body of the graft or in the outflow device. I then used the AngioJet over a Glidewire to lyse thrombus in the juxta-anastomotic segment. I crossed the anastomosis with Glidewire and then with Glidecatheter and placed the Glidecatheter in the brachial artery near the axilla. Contrast injection with digital subtraction revealed no evidence of emboli or thrombosis of that artery. The catheter was repositioned into the distal brachial artery and injections repeated until the radial and ulnar arteries were visualized all the way into the hand. There was no evidence of any embolization or thrombosis. The palmar arches are not intact, but there is good arterial supply to all of the digits. I then used a Mimi embolectomy balloon catheter to remove thrombus from the arterial anastomosis and then repeat contrast injection revealed some irregularity or stenosis at the AA, which was treated with an angioplasty balloon 8-mm diameter x 40. Repeated contrast injections following that demonstrated excellent flow in the fistula and no residual thrombus or stenosis. The hardware was removed with hemostasis at the puncture sites obtained with [id number] 4-0 Prolene sutures and direct pressure. The sites were dressed with Ultrafoam and Tegaderm with Cavilon skin prep. She was awakened and taken to the recovery room. OPERATIVE REPORT [id number] CARMINA GREWAL Blood loss was about 25 cc, none replaced. Sponges, instruments, and needles were accounted for. No drain was used. No surgical specimen submitted. The patient will be sent on to dialysis, and as soon as she has had dialysis, if otherwise okay with nephrology, she can be discharged. No routine planned followup at this time and she should resume her usual anticoagulant regime this evening, supper time or later. A 5000 units of heparin was given intraoperatively today and this was not reversed, but no other anticoagulation has been administered today. TRANSINT:[id number] Voice Confirmation ID: [id number] DOCUMENT ID: [id number] MEENA TIRADO MD at 1119 CC: WALI PAYNE [id number] DICTATION DATE: 12/18/17 1341 DISASTER OR DAMAGE CONTROL SPECIALIST: 12/18/17 [address] [facility] [address] [place] [address]
--- NOTE | ~2017-12-17 | OP ---
PATIENT NAME: CARMINA GREWAL MEDICAL RECORD: [id number] :30 LOCATION:D. D.2119 ADMISSION DATE:12/17/17 SURGEON: MEENA TIRADO MD DATE OF OPERATION: 12/20/2017 REFERRED BY: Dr. Sanz in [place]. 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 OPERATION PERFORMED: Percutaneous angiogram and AngioJet mechanical thrombolysis and selective left brachial artery arteriogram. SURGEON: Meena Tirado MD ANESTHESIA: Local 2% lidocaine without epinephrine and monitoring and sedation per INFORMATION DEVELOPER. PREOPERATIVE NOTE: Mr. Grewal had dialysis successfully after her surgery on Sunday and then thrombosed her graft after that. This was noted on Sunday, yesterday. There may have been a lack of continuity with her anticoagulant medication, her Eliquis. Also, the patient tells me today that for the last few days at home, she actually did not have any Eliquis as she had given the medication away to a relative. It is possible and hopefully this recent problem with severe thrombophilia can be at least partly explained by her not taking her medication history which had not gotten before today. At any rate, the graft is clotted again. She has no other means of dialysis and she is brought back to the operating room to do another declot under local. Under monitoring and minimal sedation per INFORMATION DEVELOPER, the patient was placed on the table in supine position and prepped and draped in sterile manner. The graft in the left arm was accessed with micropuncture technique and local anesthesia near the arterial anastomosis and a 6-Lao introducer placed and an AngioJet catheter used to lyse thrombus within the body of the graft and the venous outflow device over a 0.035 Glidewire. After that, the access port was aspirated and 25 cc of blood was returned and discarded. I then flushed and then injected contrast and performed digital subtraction angiography, which demonstrated a good clearance of thrombus from the body of the graft and the outflow tract. I then inserted a second 6-Lao introducer near the shoulder, directed laterally and passed a Glidewire and a glide catheter through the distal graft on the arterial anastomosis into the proximal brachial artery. A selective brachial artery arteriogram was then performed, which revealed no stenoses or occlusions or clots or evidence of emboli. Films were taken into the elbow and there really were no embolic findings or changes. I then lysed residual thrombus in the arterial inflow with the AngioJet and used a 4-Lao Mimi embolectomy catheter to remove any remaining thrombus from the arterial anastomosis. Then with proximal occlusion, contrast was injected via the distal port and we saw that the arterial anastomosis and JA segment were wide open. At OPERATIVE REPORT [id number] CARMINA GREWAL R that point, the occluding balloon was deflated and contrast flowed quickly through the graft. There was no evidence or visualization of any residual thrombus or stenosis. The patient had been given 5000 units of heparin at the beginning of the procedure and this was not reversed. The two 6-Lao ports were removed and hemostasis was obtained with [id number] 4-0 Prolene sutures and a period of direct digital pressure. Dressings of foam and Tegaderm were applied with Cavilon skin prep. The patient was in stable condition and was taken to the recovery room. I did not reverse the heparin. There were about 25 cc of blood loss during the procedure, none was replaced. All sponges, instruments and needles were accounted for. No drain was used and no surgical specimen submitted for histopathology. I did not implant a dialysis catheter this time, hoping to keep her graft open with aggressive anticoagulation. PLAN: The patient will go back to the floor this evening. I am ordering 5 mg twice a day dose of Eliquis and starting her on Brilinta, using that rather than Plavix, but starting at a half dose at 90 mg p.o. once a day, but starting in the recovery room. She should have dialysis tomorrow through her HeRO graft. I am unsure about when she should be allowed to go home and the exact anticoagulant regime I am uncertain about and certainly we need hematology's recommendations. TRANSINT:[id number] Voice Confirmation ID: [id number] DOCUMENT ID: [id number] MEENA TIRADO MD at 1119 CC: WALI SANZ MD [id number] DICTATION DATE: 12/20/171758 RESIDENTIAL DRIVER: 12/20/[address] [facility] [address] [place] [place] [id number]
--- NOTE | ~2017-12-17 | OP ---
PATIENT NAME: CARMINA GREWAL MEDICAL RECORD: [id number] :30 LOCATION:D.M2 D.2119 ADMISSION DATE:12/17/17 SURGEON: CRYSTAL BLANCO MD DATE OF OPERATION: 12/28/2017 PREOPERATIVE DIAGNOSES: 1. Failing HeRo graft. 2. End-stage renal disease without other access for hemodialysis. POSTOPERATIVE DIAGNOSES: 1. Failing HeRo graft. 2. End-stage renal disease without other access for hemodialysis. 3. Apparent occlusion of both innominate veins. PROCEDURES: 1. Failed attempts at bilateral neck placement of HemoSplit catheters, which are tunneled cuffed dual-lumen hemodialysis catheter. 2. Right innominate venogram with immediate surgeon interpretation, nonselective. 3. Nonselective left external jugular venogram with surgeon interpretation. 4. Surgeon interpretation of the venographic images. 5. Placement of right common femoral venous 42 cm HemoSplit catheter, which is a tunneled cuffed dual-lumen hemodialysis catheter. SURGEON: Crystal Blanco MD LIFE INSURANCE SALES: None. BLOOD LOSS: Less than 25 cc. ANESTHESIA: General. COMPLICATIONS: None. The risks, possible complications and alternatives to the procedure were explained to the patient. She elects to proceed. OPERATIVE COURSE: The patient was conveyed to the operating room electively on 12/28/2017. General anesthesia was induced by the anesthesia staff. The chest and both sides of the neck was sterilely prepped and draped. Under ultrasonographic guidance, I was able to identify a sclerotic, but patent right internal jugular vein, which was somewhat small. Under ultrasonographic guidance, I percutaneously accessed the right internal jugular vein in an antegrade fashion. I was able to advance the needle down into the proximal innominate vein. A guidewire would not pass any further. I elected to perform a venogram. A venogram was performed through the needle. This revealed occlusion of the right innominate vein at its origin. There were numerous mediastinal collaterals that were enlarged and they filled the right side of the heart. Therefore, the right approach to placement of HemoSplit catheter was not going to be obtainable. This approach was abandoned. The needle was removed. On the left side, the left neck was interrogated with the ultrasound. The left internal jugular vein was small and I felt that it was inaccessible. The external jugular vein was very large. I attempted to access the left subclavian vein utilizing a supraclavicular antegrade technique. This failed. I was able OPERATIVE REPORT [id number] CARMINA GREWAL to access the external jugular vein. An external jugular venogram was performed and this revealed what appeared to be occlusion of the left innominate vein as well. There were large mediastinal collaterals and I could not see filling of the right side of the heart, but this was likely due to dilution of the dye. There was then extravasation of dye in the neck. The neck approaches were abandoned. The patient was then positioned in the reverse Trendelenburg position. Both groins and both thighs were sterilely prepped and draped. Under ultrasonographic guidance, I accessed the right common femoral vein in an antegrade fashion. A guidewire passed easily. This was visualized under fluoroscopy. No radiologist was present for this procedure. Static fluoroscopic images as well as cine images were obtained and these are kept in the PACS system. The surgeon interpretation of the radiographic images is dictated within the body of this operative note. At the right groin, an incision was accomplished around the wire. Another incision was accomplished on the distal anterior thigh. I tunneled a 42 cm HemoSplit catheter from the distal thigh incision to the right groin incision. Over the wire, I dilated to a larger size. A dilator sheath was then advanced. The dilator and wire were removed. The tips of the HemoSplit catheter were advanced up into the inferior vena cava. I then pulled back on the HemoSplit catheter to seat the cuff in the subcutaneous tissues. Both lumens flushed easily and aspirated dark, nonpulsatile blood. I then topped off both lumens of the inflow catheter with the appropriate amount of concentrated heparin. The groin incision was closed with an interrupted intracuticular 3-0 Vicryl. The flange of the HemoSplit catheter was sutured to the underlying skin with 2-0 nylons. Sterile dressings were then applied. The patient was then extubated and conveyed to post-anesthesia care unit where she was in stable condition. TRANSINT:[id number] Voice Confirmation ID: [id number] DOCUMENT ID: [id number] CRYSTAL BLANCO MD at 2529 CC: MEENA TIRADO and WALI PAYNE [id number] DICTATION DATE: 12/28/17 1115 ADVERTISING ASSISTANT MANAGER: 12/28/17 1134 DIS IN 12/29/17 [facility] [address] [place] [address]
[2017-12-17] MEDS ORDERED: METOPROLOL TART25 MG PO (12:18)
[2017-12-17 12:49] LABS: BASOPHILS 0.2 % (0-2); HEMATOCRIT 30.5 % (36.0-48.0); HEMOGLOBIN 9.4 g/dL (12-16); IMMATURE GRANULOCYTES 0.2 % (0-5); LYMPHOCYTES 6.9 % (15-50); MCHC 30.8 g/dL (31.0-37.0); MCV 97.4 fL (80.0-100.0); MEAN PLATELET VOLUME 10.8 fL (7.4-10.4); MONOCYTES 6.5 % (2-11); NEUTROPHILS 85.2 % (40-80); PLATELET COUNT 180 10x3/uL (130-400); RBC 3.13 10x6/uL (4.00-5.40); RDW 16.1 % (11.5-14.5); WBC 5.8 10x3/uL (4.8-10.8)
[2017-12-17 12:58] LABS: APTT 33.2 SECONDS (22.8-39.4); INR 1.08 (0.85-1.17); PROTIME 13.6 SECONDS (11.6-15.0)
[2017-12-17 13:04] LABS: ANION GAP 14.6 mmol/L (8-16); BILIRUBIN - TOTAL 0.36 mg/dL (0.2-1.3); CALCIUM 7.8 mg/dL (8.5-10.1); CARBON DIOXIDE 26.8 mmol/L (21.0-32.0); CREATININE - SERUM 9.6 mg/dL (0.6-1.3); PHOSPHOROUS 8.3 mg/dL (2.5-4.9); PROTEIN - SERUM 6.2 g/dL (6.4-8.2)
[2017-12-17 13:23] LABS: POTASSIUM - SERUM 6.4 mmol/L (3.5-5.1)
[2017-12-17 15:40] VITALS: BP 122/66
[2017-12-17 16:46] VITALS: BMI 20.3
[2017-12-17 20:12] VITALS: BP 145/56
[2017-12-18 00:43] VITALS: BP 140/68
[2017-12-18 04:35] LABS: BASOPHILS 0.2 % (0-2); EOSINOPHILS 2.2 % (0-7); HEMATOCRIT 28.4 % (36.0-48.0); HEMOGLOBIN 8.8 g/dL (12-16); IMMATURE GRANULOCYTES 0.4 % (0-5); LYMPHOCYTES 9.3 % (15-50); MCH 29.9 pg (26.0-34.0); MCV 96.6 fL (80.0-100.0); MONOCYTES 5.9 % (2-11); PLATELET COUNT 193 10x3/uL (130-400); RBC 2.94 10x6/uL (4.00-5.40); RDW 16.1 % (11.5-14.5); WBC 5.4 10x3/uL (4.8-10.8)
[2017-12-18 04:46] LABS: APTT 31.4 SECONDS (22.8-39.4); INR 1.11 (0.85-1.17); PROTIME 13.9 SECONDS (11.6-15.0)
[2017-12-18 04:54] LABS: ALBUMIN 2.9 g/dL (3.4-5.0); BILIRUBIN - TOTAL 0.34 mg/dL (0.2-1.3); CALCIUM 7.8 mg/dL (8.5-10.1); CARBON DIOXIDE 22.6 mmol/L (21.0-32.0); CREATININE - SERUM 10.1 mg/dL (0.6-1.3); PHOSPHOROUS 8.9 mg/dL (2.5-4.9); PROTEIN - SERUM 5.9 g/dL (6.4-8.2)
[2017-12-18 04:55] LABS: ANION GAP 19.6 mmol/L (8-16); POTASSIUM - SERUM 5.2 mmol/L (3.5-5.1)
[2017-12-18 05:51] VITALS: BP 148/75
[2017-12-18 07:49] VITALS: BP 156/77
[2017-12-18 13:09] VITALS: BMI 20.2
[2017-12-18 14:09] VITALS: BP 160/55
[2017-12-18 20:43] VITALS: BP 111/53
[2017-12-19 05:24] VITALS: BP 113/56
[2017-12-19 07:45] VITALS: BP 138/63
[2017-12-19 11:24] VITALS: BP 120/51
[2017-12-19 15:38] VITALS: BP 142/59
[2017-12-19 16:34] VITALS: Ht 162.6 cm; Wt 55.6 kg
[2017-12-19 20:43] VITALS: BP 135/62
[2017-12-20 06:33] VITALS: BP 137/58
[2017-12-20 06:51] LABS: BASOPHILS 0.2 % (0-2); EOSINOPHILS 2.8 % (0-7); HEMATOCRIT 24.7 % (36.0-48.0); HEMOGLOBIN 7.8 g/dL (12-16); IMMATURE GRANULOCYTES 0.2 % (0-5); LYMPHOCYTES 12.3 % (15-50); MCH 30.2 pg (26.0-34.0); MCHC 31.6 g/dL (31.0-37.0); MCV 95.7 fL (80.0-100.0); MEAN PLATELET VOLUME 11.7 fL (7.4-10.4); MONOCYTES 8.3 % (2-11); NEUTROPHILS 76.2 % (40-80); PLATELET COUNT 168 10x3/uL (130-400); RBC 2.58 10x6/uL (4.00-5.40); WBC 4.2 10x3/uL (4.8-10.8)
[2017-12-20 07:01] LABS: ALBUMIN 2.5 g/dL (3.4-5.0); ANION GAP 15.3 mmol/L (8-16); BILIRUBIN - TOTAL 0.28 mg/dL (0.2-1.3); CALCIUM 7.6 mg/dL (8.5-10.1); CREATININE - SERUM 6.8 mg/dL (0.6-1.3); POTASSIUM - SERUM 4.3 mmol/L (3.5-5.1); PROTEIN - SERUM 5.2 g/dL (6.4-8.2)
[2017-12-20 07:59] VITALS: BP 160/65
[2017-12-20 09:07] LABS: % SATURATION 28 % (15-55); IRON 37 ug/dl (35-150); TOTAL IRON BIND CAPACITY 132 ug/dl (260-445); UNSAT IRON BIND CAPACITY 95 ug/dl (150-375)
[2017-12-20 11:17] VITALS: BP 144/63
[2017-12-20 15:26] VITALS: BP 119/52
[2017-12-20 17:48] VITALS: BP 128/68
[2017-12-21 06:23] VITALS: BP 140/67
[2017-12-21 07:54] VITALS: BP 150/55
[2017-12-21 08:24] LABS: FOLATE (FOLIC ACID) - SERUM 12.8 ng/mL (>3.0)
[2017-12-21 11:04] VITALS: BP 120/53
[2017-12-21 11:50] LABS: BASOPHILS 0.2 % (0-2); EOSINOPHILS 1.8 % (0-7); HEMATOCRIT 28.8 % (36.0-48.0); IMMATURE GRANULOCYTES 0.4 % (0-5); LYMPHOCYTES 4.2 % (15-50); MCH 29.9 pg (26.0-34.0); MCHC 31.3 g/dL (31.0-37.0); MCV 95.7 fL (80.0-100.0); MEAN PLATELET VOLUME 11.1 fL (7.4-10.4); MONOCYTES 10.8 % (2-11); NEUTROPHILS 82.6 % (40-80); PLATELET COUNT 186 10x3/uL (130-400); RBC 3.01 10x6/uL (4.00-5.40); RDW 15.7 % (11.5-14.5)
[2017-12-21 12:14] LABS: WBC 5.7 10x3/uL (4.8-10.8)
[2017-12-21 12:18] LABS: CA125 20.3 U/mL (0.0-38.1); CEA 2.5 ng/mL (0.0-4.7)
[2017-12-21 15:01] VITALS: BP 122/51
[2017-12-21 18:10] LABS: CA 27-29 17.2 U/mL (0.0-38.6)
[2017-12-21 20:39] VITALS: BP 125/57
[2017-12-22 04:00] VITALS: BP 171/43
[2017-12-22 06:25] LABS: BASOPHILS 0.2 % (0-2); EOSINOPHILS 3.1 % (0-7); HEMATOCRIT 24.8 % (36.0-48.0); HEMOGLOBIN 7.9 g/dL (12-16); IMMATURE GRANULOCYTES 0.2 % (0-5); LYMPHOCYTES 10.3 % (15-50); MCH 30.6 pg (26.0-34.0); MCHC 31.9 g/dL (31.0-37.0); MCV 96.1 fL (80.0-100.0); MEAN PLATELET VOLUME 11.2 fL (7.4-10.4); MONOCYTES 10.5 % (2-11); NEUTROPHILS 75.7 % (40-80); PLATELET COUNT 161 10x3/uL (130-400); RBC 2.58 10x6/uL (4.00-5.40); RDW 15.8 % (11.5-14.5); WBC 4.5 10x3/uL (4.8-10.8)
[2017-12-22 06:48] LABS: ALBUMIN 2.7 g/dL (3.4-5.0); ANION GAP 11.8 mmol/L (8-16); BILIRUBIN - TOTAL 0.41 mg/dL (0.2-1.3); CALCIUM 7.8 mg/dL (8.5-10.1); CARBON DIOXIDE 28.6 mmol/L (21.0-32.0); CREATININE - SERUM 6.5 mg/dL (0.6-1.3); POTASSIUM - SERUM 4.4 mmol/L (3.5-5.1); PROTEIN - SERUM 5.6 g/dL (6.4-8.2)
[2017-12-22 08:07] VITALS: BP 128/60
[2017-12-22 10:15] LABS: ACLA - IGG AB <9 GPL U/mL (0-14); ACLA - IGM AB 16 MPL U/mL (0-12)
[2017-12-22 15:11] VITALS: BP 144/55
[2017-12-22 20:00] VITALS: BP 111/52
[2017-12-23] VITALS: BP 134/60
[2017-12-23 04:00] VITALS: BP 122/78
[2017-12-23 05:16] LABS: BASOPHILS 0.5 % (0-2); EOSINOPHILS 3.4 % (0-7); IMMATURE GRANULOCYTES 0.4 % (0-5); LYMPHOCYTES 9.8 % (15-50); MCHC 32.9 g/dL (31.0-37.0); MEAN PLATELET VOLUME 11.3 fL (7.4-10.4); MONOCYTES 12.2 % (2-11); NEUTROPHILS 73.7 % (40-80); PLATELET COUNT 165 10x3/uL (130-400); RDW 17.1 % (11.5-14.5); WBC 5.6 10x3/uL (4.8-10.8)
[2017-12-23 05:37] LABS: HEMOGLOBIN 11.2 g/dL (12-16); MCV 91.2 fL (80.0-100.0); RBC 3.73 10x6/uL (4.00-5.40)
[2017-12-23 05:39] LABS: ALBUMIN 2.8 g/dL (3.4-5.0); ANION GAP 13.7 mmol/L (8-16); BILIRUBIN - TOTAL 0.73 mg/dL (0.2-1.3); CALCIUM 8.1 mg/dL (8.5-10.1); CARBON DIOXIDE 26.8 mmol/L (21.0-32.0); POTASSIUM - SERUM 4.5 mmol/L (3.5-5.1)
[2017-12-23 05:46] LABS: CREATININE - SERUM 4.4 mg/dL (0.6-1.3)
[2017-12-23 06:00] VITALS: BP 157/62
[2017-12-23 17:58] LABS: HEMATOCRIT 36.5 % (36.0-48.0); HEMOGLOBIN 11.8 g/dL (12-16)
[2017-12-23 20:00] VITALS: BP 134/62
[2017-12-24 00:07] VITALS: BP 126/58
[2017-12-24 01:40] LABS: BASOPHILS 0.1 % (0-2); EOSINOPHILS 0.2 % (0-7); HEMATOCRIT 30.7 % (36.0-48.0); IMMATURE GRANULOCYTES 0.4 % (0-5); LYMPHOCYTES 4.6 % (15-50); MCH 29.9 pg (26.0-34.0); MCHC 32.6 g/dL (31.0-37.0); MCV 91.6 fL (80.0-100.0); MONOCYTES 3.8 % (2-11); NEUTROPHILS 90.9 % (40-80); PLATELET COUNT 174 10x3/uL (130-400); RBC 3.35 10x6/uL (4.00-5.40); RDW 16.2 % (11.5-14.5)
[2017-12-24 01:54] LABS: ALBUMIN 2.6 g/dL (3.4-5.0); ANION GAP 17.4 mmol/L (8-16); BILIRUBIN - TOTAL 0.52 mg/dL (0.2-1.3); CALCIUM 7.9 mg/dL (8.5-10.1); CARBON DIOXIDE 23.9 mmol/L (21.0-32.0); CREATININE - SERUM 5.8 mg/dL (0.6-1.3); POTASSIUM - SERUM 4.3 mmol/L (3.5-5.1); PROTEIN - SERUM 5.5 g/dL (6.4-8.2)
[2017-12-24 04:00] VITALS: BP 116/51
[2017-12-24 06:49] LABS: HEMOGLOBIN 10.4 g/dL (12-16)
[2017-12-24 08:31] VITALS: BP 128/61
[2017-12-24 14:53] VITALS: BP 106/60
[2017-12-24 18:01] LABS: HEMATOCRIT 29.7 % (36.0-48.0); HEMOGLOBIN 9.7 g/dL (12-16)
[2017-12-24 22:07] VITALS: BP 109/45
[2017-12-24 22:44] LABS: HEMATOCRIT 28.8 % (36.0-48.0); HEMOGLOBIN 9.3 g/dL (12-16)
[2017-12-25 06:18] LABS: BASOPHILS 0.3 % (0-2); EOSINOPHILS 2.9 % (0-7); HEMATOCRIT 26.3 % (36.0-48.0); HEMOGLOBIN 8.5 g/dL (12-16); IMMATURE GRANULOCYTES 0.2 % (0-5); LYMPHOCYTES 12.1 % (15-50); MCH 29.5 pg (26.0-34.0); MCHC 32.3 g/dL (31.0-37.0); MCV 91.3 fL (80.0-100.0); MEAN PLATELET VOLUME 11.6 fL (7.4-10.4); NEUTROPHILS 76.5 % (40-80); PLATELET COUNT 176 10x3/uL (130-400); RBC 2.88 10x6/uL (4.00-5.40); RDW 15.7 % (11.5-14.5)
[2017-12-25 06:19] LABS: WBC 5.8 10x3/uL (4.8-10.8)
[2017-12-25 06:21] VITALS: BP 123/44
[2017-12-25 06:49] LABS: ALBUMIN 2.6 g/dL (3.4-5.0); ANION GAP 14.3 mmol/L (8-16); BILIRUBIN - TOTAL 0.37 mg/dL (0.2-1.3); CALCIUM 7.7 mg/dL (8.5-10.1); CARBON DIOXIDE 24.7 mmol/L (21.0-32.0); PROTEIN - SERUM 5.5 g/dL (6.4-8.2)
[2017-12-25 07:02] LABS: CREATININE - SERUM 7.4 mg/dL (0.6-1.3)
[2017-12-25 07:48] VITALS: BP 123/48
[2017-12-25 15:45] VITALS: BP 118/83
[2017-12-25 18:09] LABS: FACTOR II DNA ANALYSIS Negative (())
[2017-12-25 21:15] LABS: HEMATOCRIT 24.3 % (36.0-48.0); HEMOGLOBIN 7.9 g/dL (12-16)
[2017-12-25 21:20] VITALS: BP 102/47
[2017-12-26 00:56] VITALS: BP 108/44
[2017-12-26 05:53] VITALS: BP 118/45
[2017-12-26 06:53] LABS: ALBUMIN 2.5 g/dL (3.4-5.0); ANION GAP 11.4 mmol/L (8-16); BILIRUBIN - TOTAL 0.29 mg/dL (0.2-1.3); CALCIUM 7.5 mg/dL (8.5-10.1); POTASSIUM - SERUM 3.4 mmol/L (3.5-5.1); PROTEIN - SERUM 5.3 g/dL (6.4-8.2)
[2017-12-26 07:02] LABS: CREATININE - SERUM 4.6 mg/dL (0.6-1.3)
[2017-12-26 07:22] LABS: BASOPHILS 0.2 % (0-2); EOSINOPHILS 3.4 % (0-7); IMMATURE GRANULOCYTES 0.5 % (0-5); LYMPHOCYTES 12.6 % (15-50); MCHC 32.2 g/dL (31.0-37.0); MCV 93.1 fL (80.0-100.0); MEAN PLATELET VOLUME 11.9 fL (7.4-10.4); MONOCYTES 8.2 % (2-11); NEUTROPHILS 75.1 % (40-80); PLATELET COUNT 167 10x3/uL (130-400); RBC 2.47 10x6/uL (4.00-5.40); RDW 15.7 % (11.5-14.5)
[2017-12-26 07:36] LABS: WBC 4.1 10x3/uL (4.8-10.8)
[2017-12-26 07:37] LABS: HEMOGLOBIN 7.4 g/dL (12-16)
[2017-12-26 07:56] VITALS: BP 119/50
[2017-12-26 12:27] VITALS: BP 119/42
[2017-12-26 16:09] VITALS: BP 108/40
[2017-12-26 20:56] VITALS: BP 132/54
[2017-12-27 05:08] LABS: BASOPHILS 0.3 % (0-2); EOSINOPHILS 4.9 % (0-7); IMMATURE GRANULOCYTES 0.5 % (0-5); LYMPHOCYTES 12.9 % (15-50); MCHC 32.3 g/dL (31.0-37.0); MCV 92.8 fL (80.0-100.0); MEAN PLATELET VOLUME 11.2 fL (7.4-10.4); MONOCYTES 7.5 % (2-11); NEUTROPHILS 73.9 % (40-80); PLATELET COUNT 175 10x3/uL (130-400); RBC 2.37 10x6/uL (4.00-5.40); RDW 15.6 % (11.5-14.5); WBC 3.9 10x3/uL (4.8-10.8)
[2017-12-27 05:37] LABS: ALBUMIN 2.6 g/dL (3.4-5.0); ANION GAP 14.8 mmol/L (8-16); BILIRUBIN - TOTAL 0.27 mg/dL (0.2-1.3); CALCIUM 7.6 mg/dL (8.5-10.1); CARBON DIOXIDE 27.3 mmol/L (21.0-32.0)
[2017-12-27 05:40] LABS: CREATININE - SERUM 6.2 mg/dL (0.6-1.3); POTASSIUM - SERUM 4.1 mmol/L (3.5-5.1)
[2017-12-27 05:54] LABS: HEMOGLOBIN 7.1 g/dL (12-16)
[2017-12-27 06:09] VITALS: BP 123/60
[2017-12-27 07:34] VITALS: BP 144/55
[2017-12-27 16:50] VITALS: BP 108/61
[2017-12-27 21:16] VITALS: BP 137/65
[2017-12-28 05:52] VITALS: BP 132/54
[2017-12-28 06:17] LABS: BASOPHILS 0.2 % (0-2); EOSINOPHILS 3.5 % (0-7); HEMATOCRIT 30.5 % (36.0-48.0); HEMOGLOBIN 9.9 g/dL (12-16); IMMATURE GRANULOCYTES 0.2 % (0-5); LYMPHOCYTES 11.3 % (15-50); MCH 29.6 pg (26.0-34.0); MCHC 32.5 g/dL (31.0-37.0); MCV 91.3 fL (80.0-100.0); MEAN PLATELET VOLUME 11.6 fL (7.4-10.4); MONOCYTES 11.3 % (2-11); NEUTROPHILS 73.5 % (40-80); PLATELET COUNT 158 10x3/uL (130-400); RBC 3.34 10x6/uL (4.00-5.40); RDW 15.3 % (11.5-14.5); WBC 4.3 10x3/uL (4.8-10.8)
[2017-12-28 06:47] LABS: ALBUMIN 2.6 g/dL (3.4-5.0); ANION GAP 12.3 mmol/L (8-16); BILIRUBIN - TOTAL 0.41 mg/dL (0.2-1.3); CALCIUM 7.7 mg/dL (8.5-10.1); CARBON DIOXIDE 31.2 mmol/L (21.0-32.0); POTASSIUM - SERUM 3.5 mmol/L (3.5-5.1); PROTEIN - SERUM 5.4 g/dL (6.4-8.2)
[2017-12-28 06:57] LABS: CREATININE - SERUM 4.1 mg/dL (0.6-1.3)
[2017-12-28 07:48] VITALS: BP 115/55
[2017-12-28 12:07] VITALS: BP 134/57
[2017-12-28 17:13] VITALS: BP 123/60
[2017-12-28 20:00] VITALS: BP 114/53
[2017-12-29] VITALS: BP 120/49
[2017-12-29 04:00] VITALS: BP 101/59
[2017-12-29 05:45] LABS: BASOPHILS 0.2 % (0-2); EOSINOPHILS 3.3 % (0-7); HEMATOCRIT 29.7 % (36.0-48.0); HEMOGLOBIN 9.5 g/dL (12-16); IMMATURE GRANULOCYTES 0.4 % (0-5); LYMPHOCYTES 7.9 % (15-50); MCH 29.7 pg (26.0-34.0); MCV 92.8 fL (80.0-100.0); MEAN PLATELET VOLUME 11.6 fL (7.4-10.4); MONOCYTES 9.5 % (2-11); NEUTROPHILS 78.7 % (40-80); PLATELET COUNT 157 10x3/uL (130-400); RDW 15.1 % (11.5-14.5); WBC 4.8 10x3/uL (4.8-10.8)
[2017-12-29 06:10] LABS: ANION GAP 11.7 mmol/L (8-16); CALCIUM 7.7 mg/dL (8.5-10.1); CARBON DIOXIDE 29.9 mmol/L (21.0-32.0); PHOSPHOROUS 5.6 mg/dL (2.5-4.9); POTASSIUM - SERUM 3.6 mmol/L (3.5-5.1)
[2017-12-29 06:17] LABS: CREATININE - SERUM 5.6 mg/dL (0.6-1.3)
[2017-12-29 09:35] VITALS: BP 106/55
[2017-12-29] MEDS ORDERED: LOPRESSOR25 MG PO (10:50)
[2017-12-29] MEDS ORDERED: PROTONIX40 MG PO (10:50)
[2017-12-29] MEDS ORDERED: SYNTHROID75 MCG PO (10:50)
== END 2017-12-29 16:42 | disposition home or self-care (01) | DRG 252 ==
LOC: D.M2 11:29 → D.SDCHOLD 16:07 → D.M2 16:10
PROVIDERS: Internal Medicine Gastroenterology; Internal Medicine Hematology & Oncology; Internal Medicine Nephrology; Surgery
PROC: 03783ZZ Dilation of Left Brachial Artery, Percutaneous Approach (ICD-10-PCS; 2017-12-18)
PROC: 5A1D70Z Performance of Urinary Filtration, Intermittent, Less than 6 Hours Per Day (ICD-10-PCS; 2017-12-18)
PROC: 03C83ZZ Extirpation of Matter from Left Brachial Artery, Percutaneous Approach (ICD-10-PCS; principal; 2017-12-18 13:30)
PROC: 03C83ZZ Extirpation of Matter from Left Brachial Artery, Percutaneous Approach (ICD-10-PCS; 2017-12-20)
PROC: B51W1ZZ Fluoroscopy of Dialysis Shunt/Fistula using Low Osmolar Contrast (ICD-10-PCS; 2017-12-20)
PROC: 0DB78ZX Excision of Stomach, Pylorus, Via Natural or Artificial Opening Endoscopic, Diagnostic (ICD-10-PCS; 2017-12-23)
PROC: 0DJD8ZZ Inspection of Lower Intestinal Tract, Via Natural or Artificial Opening Endoscopic (ICD-10-PCS; 2017-12-23)
PROC: B5141ZZ Fluoroscopy of Left Jugular Veins using Low Osmolar Contrast (ICD-10-PCS; 2017-12-28)
PROC: B51V1ZZ Fluoroscopy of Other Veins using Low Osmolar Contrast (ICD-10-PCS; 2017-12-28)
PROC: 0JHL3XZ Insertion of Tunneled Vascular Access Device into Right Upper Leg Subcutaneous Tissue and Fascia, Percutaneous Approach (ICD-10-PCS; 2017-12-28)
PROC: 06H033Z Insertion of Infusion Device into Inferior Vena Cava, Percutaneous Approach (ICD-10-PCS; 2017-12-28)
PROC: B5191ZA Fluoroscopy of Inferior Vena Cava using Low Osmolar Contrast, Guidance (ICD-10-PCS; 2017-12-28)
DX: T82.868A Thrombosis due to vascular prosthetic devices, implants and grafts, initial encounter (principal); N18.6 End stage renal disease; K55.21 Angiodysplasia of colon with hemorrhage; I13.2 Hypertensive heart and chronic kidney disease with heart failure and with stage 5 chronic kidney disease, or end stage renal disease; D68.59 Other primary thrombophilia; E72.11 Homocystinuria; I82.290 Acute embolism and thrombosis of other thoracic veins; Y83.8 Other surgical procedures as the cause of abnormal reaction of the patient, or of later complication, without mention of misadventure at the time of the procedure; I50.9 Heart failure, unspecified; Z99.2 Dependence on renal dialysis

== ENCOUNTER 2018-01-18 09:37 | Day surgery (SDC) | payer MEDICARE, OTHER ==
[~2018-01-18] VITALS: Ht 162.6 cm; Wt 54.4 kg
--- NOTE | ~2018-01-18 | OP ---
PATIENT NAME: KHUSHI GREWAL MEDICAL RECORD: [id number] :30 LOCATION:[place] ADMISSION DATE: SURGEON: MEENA TIRADO MD DATE OF OPERATION: 01/18/2018 PREOPERATIVE DIAGNOSES: End-stage renal disease and dependence on hemodialysis, thrombophilia, congestive heart failure, and a dialysis catheter, mechanical complication with intermittent thrombosis. POSTOPERATIVE DIAGNOSIS: OPERATION PERFORMED TODAY: Removal of HeRO outflow device from the left chest and right atrium and insertion of a 23 cm HemoSplit dialysis catheter via the left internal jugular vein along the same tract as HeRO, then removal of right femoral tunneled dialysis catheter all under fluoroscopy. SURGEON: Meena Tirado MD ANESTHESIA: General with LMA per KJ and Dr. Monsalve. PREOPERATIVE NOTE: Khushi Grewal is an 87-year-old white female patient from [place]. She has end-stage renal disease and has been on chronic hemodialysis for some time. She has had numerous failed dialysis accesses and most recently and for a long period of time, she is dialyzed with a left upper extremity HeRO AV graft. This has required a fairly frequent declots and she has been maintained on anticoagulants. She now has, however, had a serious GI bleeding with anticoagulation and we decided to forego dialysis with anything but a catheter. She has had a femoral catheter, which is worked up off and on for the last couple of weeks. She is back here today, so that I can remove the HeRO outflow device, which is still present on the left side and place a HemoSplit there and then I can remove the HemoSplit catheter from the right eye. Under general anesthesia with an LMA per KJ and Dr. Monsalve, the patient was placed in supine position, prepped and draped in sterile manner. I made an incision at the base of the neck and exposed the HeRO outflow catheter there and clamped it. I made another incision laterally just beneath the clavicle and exposed the junction with a PTFE graft. I transected that and removed the connector and then pulled the HeRO outflow catheter through the subcutaneous tunnel and back to the cervical incision. I then removed that catheter over a guidewire under fluoroscopy and placed a pursestring suture of 2-0 Vicryl to achieve hemostasis. Due to the patient's dilated subcutaneous veins from her central venous occlusions, it was necessary to suture ligate several bleeding sites. I chose a 23 cm HemoSplit and made an incision beneath the clavicle and pulled the catheter through a subcutaneous tunnel from there up to the cervical wound where it was inserted over a guidewire through a peel-away introducer and its tip placed in the right atrium in a very satisfactory position. The peel-away sheath was removed as was the guidewire. The catheter functioned perfectly. It was sutured to the skin with 2-0 Prolene and the cervical and chest incisions were closed with interrupted inverted 3-0 Vicryl and running 4-0 Prolene for the skin. Sterile dressings were applied. I then went to the thigh and exposed the tunneled dialysis catheter and I was able to successfully remove it by Taxis. Pressure was held there for 10 minutes before pressure dressing was applied and the patient was then awakened and taken to the recovery room. OPERATIVE REPORT [id number] KHUSHI GREWAL There was blood loss during procedure of possibly 75 cc to 100 cc. None was replaced. All sponges, instruments and needles were accounted for. No drain was used and I did not submit any of removed hardware or dialysis catheters for any type of inspection. These were just discarded. TRANSINT:[id number] Voice Confirmation ID: [id number] DOCUMENT ID: [id number] MEENA TIRADO MD at 2153 CC: WALI COLE MD [id number] DICTATION DATE: 01/18/18 1641 GLOBAL SOURCING MANAGER: 01/18/18 2216 [facility] 01/18/18 [facility] [address] [place] [address]
[~2018-01-18 09:37] MED LIST changes: +METOPROLOL TART25 MG PO; +PROTONIX40 MG PO
[2018-01-18 11:15] LABS: BASOPHILS 0.3 % (0-2); EOSINOPHILS 1.9 % (0-7); HEMATOCRIT 33.8 % (36.0-48.0); HEMOGLOBIN 10.3 g/dL (12-16); IMMATURE GRANULOCYTES 0.6 % (0-5); LYMPHOCYTES 11.2 % (15-50); MCH 30.6 pg (26.0-34.0); MCHC 30.5 g/dL (31.0-37.0); MCV 100.3 fL (80.0-100.0); MEAN PLATELET VOLUME 11.1 fL (7.4-10.4); RBC 3.37 10x6/uL (4.00-5.40); RDW 17.5 % (11.5-14.5); WBC 6.8 10x3/uL (4.8-10.8)
[2018-01-18 11:19] LABS: PLATELET COUNT 124 10x3/uL (130-400)
[2018-01-18 11:21] LABS: APTT 23.3 SECONDS (22.8-39.4); INR 1.05 (0.85-1.17); PROTIME 13.3 SECONDS (11.6-15.0)
[2018-01-18 11:28] LABS: ANION GAP 15.8 mmol/L (8-16); CALCIUM 8.9 mg/dL (8.5-10.1); CARBON DIOXIDE 26.4 mmol/L (21.0-32.0); CREATININE - SERUM 4.8 mg/dL (0.6-1.3); POTASSIUM - SERUM 5.2 mmol/L (3.5-5.1)
[2018-01-18 11:31] VITALS: BP 129/48; Ht 162.6 cm; Wt 54.4 kg
== END 2018-01-18 17:55 | disposition home or self-care (01) ==
LOC: D.OPS 09:37
PROVIDERS: Internal Medicine Nephrology
DX: T82.590A Other mechanical complication of surgically created arteriovenous fistula, initial encounter (principal); T82.868A Thrombosis due to vascular prosthetic devices, implants and grafts, initial encounter; N18.6 End stage renal disease; Z99.2 Dependence on renal dialysis; D68.59 Other primary thrombophilia; I50.9 Heart failure, unspecified; Z01.812 Encounter for preprocedural laboratory examination